=== PATIENT | male | born 1965 | race Caucasian/White ===

== ENCOUNTER 2023-07-07 17:04 | Inpatient (IN) | payer MEDICARE, MEDICAID, SELFPAY ==
--- NOTE | ~2023-07-07 | XR_ITS ---
EXAMINATION: XR CHEST 2 VIEW CLINICAL INFORMATION: Cough and shortness of breath COMPARISON: 04/12/2019 TECHNIQUE: PA and lateral views of the chest obtained. FINDINGS: Consolidation is evident in the left lower lobe. The right lung is clear. There are no pleural effusions. The cardiomediastinal silhouette is normal. XR/XR chest 2V IMPRESSION: Left lower lobe pneumonia. Follow-up is recommended to confirm clearing.
[2023-07-07 17:18] VITALS: BP 157/98; PULSE 70; O2SAT 90
[2023-07-07 17:28] VITALS: BP 135/69; PULSE 78; RESP 16; TEMP 37.2; O2SAT 95; BMI 27.4
--- NOTE | 2023-07-07 17:29 | ECG_ITS ---
Test Reason : sob Blood Pressure : / mmHG Vent. Rate : 071 BPM Atrial Rate : 071 BPM P-R Int : 166 ms QRS Dur : 084 ms QT Int : 434 ms P-R-T Axes : 043 057 060 degrees QTc Int : 471 ms Normal sinus rhythm Normal ECG When compared with ECG of 12-APR-2019 07:31, No significant change was found Referred By: Ana Martin Electronically Signed By:JATINDER LOPEZ MD
--- NOTE | 2023-07-07 17:29 | ED.SOB ---
HPI - SOB/Dyspnea General Chief Complaint: Upper Respiratory Symptoms Stated Complaint: cough and SOB x3 days, productive cough, 93% RA Time Seen by Provider: 07/07/23 17:17 Source: patient, EMS and other (prison records reviewed) Mode of arrival: EMS Limitations: no limitations History of Present Illness HPI Narrative: Patient is a 58-year-old male presents emergency department via EMS coming in from home. Patient has been experiencing productive cough with yellow phlegm, and shortness of breath over the past 3 days with progressive worsening. Per EMS report his room air O2 saturation to 90%, currently on 3 L via nasal cannula with O2 saturation 94-95%. He denies any known sick contacts. He denies fevers, chills, sore throat, difficulty swallowing, chest pain, nausea vomiting, abdominal pain, numbness or tingling of the extremities, swelling of the extremities. Related Data Allergies Allergy/AdvReac Type Severity Reaction Status Date / Time almond [ALMOND] Allergy Unknown UNK Verified 07/07/23 20:54 Seasonal Allergies Allergy Runny Nose Verified 07/07/23 20:55 Review of Systems Review of Systems: Yes all other systems are reviewed and are negative [facility] Past Medical History Attestation statement: The following information was validated with the patient. Source: other (halfway records reviewed) Medical History Gastroesophageal reflux disease Essential hypertension Social History Social History Smoked in Last 30 Days: No Use of substances other than those prescribed or required for medical reasons: No Advance Directives: No Advance Directives Information Provided: No Physical Exam Vital Signs: Vital Signs: Last Vital Signs Temp 99 F 07/07/23 17:28 Pulse 65 07/07/23 19:28 Resp 16 07/07/23 19:28 BP 135/69 07/07/23 17:28 Pulse Ox 95 07/07/23 17:28 O2 Del Method Nasal Cannula 07/07/23 17:28 Oxygen Flow Rate 3 07/07/23 17:28 BMI result Body Mass Index 27.4 Appearance: Alert.?Oriented to person, place and time. No acute distress.?Normal affect. Eyes: Pupils equal, round and reactive to light.? ENT: Pharynx normal.?? Neck: Normal inspection.? Neck supple.?? CVS: Heart sounds normal. Normal heart rate and rhythm.? Pulses normal.?? Respiratory: No respiratory distress.? Lung sounds with rhonchi bilaterally, mild inspiratory wheezing in expiratory wheezing in the bilateral lower lobe Abdomen: Soft and non-tender. Normoactive bowel sounds. ?? Skin: Skin warm and dry.? Normal skin color.? Extremities: No lower extremity edema.? No calf ttp? Neuro: Moves all extremities spontaneously. Sensation intact bilaterally. No focal neuro deficits. Ambulates with normal steady gait. Course Reevaluation(s) Reevaluation #1: CBC is without leukocytosis, left shift or anemia. CMP is overall unremarkable. Lipase within normal limits. High sensitive troponin below detectable limits, EKG revealing normal sinus rhythm with ventricular rate of 71, QTC 401, no ST elevation, no ST depression, not consistent with ACS.. BMP within normal range. COVID-19/influenza/RSV testing is negative. Chest x-ray consistent with left lower lobe pneumonia, ambulatory O2 trial Time: 19:44 Reevaluation #2: Room air O2 saturation while at rest to 88%, improves with supplemental O2 via NC to 94%. reviewed these findings with patient and his mother. Admission to medicine service, accepted by Dr. Souza Time: 20:26 Medications Administered Discontinued Medications Generic Name Dose Route Start Last Admin Trade Name Freq PRN Reason Stop Dose Admin Albuterol Sulfate 8 puff 07/07/23 19:17 07/07/23 19:21 Albuterol Sulfate 90 Mcg 8 Gm Inhaler INHALE 07/07/23 19:18 8 puff ONCE ONE Administration Ceftriaxone Sodium 1 gm/ 50 mls @ 100 mls/hr 07/07/23 20:29 07/07/23 20:56 Sodium Chloride IV 07/07/23 20:58 100 mls/hr ONCE ONE Administration Medical Decision Making Medical Decision Making [facility] Narrative: Patient is a 58-year-old male with past medical history of hypertension, hyperlipidemia, cardiomyopathy, prolonged QT, diverticulitis, Grey syndrome, thrombocytopenia who presents to the emergency department for evaluation of cough and shortness of breath. The time of my examination he is does not appear to be in any respiratory distress, he is speaking clear full sentences, no tachypnea. He is on 3 L via nasal cannula with O2 saturation at 95%. He is without tachycardia and is normotensive. He does have rhonchi bilaterally within strain extreme wheezing in the lower lobes, no known pulmonary history. Will obtain CBC to evaluate for leukocytosis/ anemia, CMP to evaluate for abnormal electrolytes /abnormal renal function/ abnormal hepatic function, EKG and troponin to evaluate for ischemia/ACS. Chest x-ray to evaluate for consolidation/ infiltrate/ mass/ pulmonary congestion and Urinalysis. Differential Diagnosis Differential Diagnoses: The differential diagnosis associated with the presentation includes (Viral upper respiratory infection, pneumonia, ACS, CHF) Admission/Observation Consideration of admission/observation: Escalation of care including admission/observation considered (See narrative above and course narrative for further details) Consult Healthcare Provider Management of the patient was discussed with: Hospitalist (As per course narrative) Lab Data MDM Lab Attestation statement: I reviewed the patient's lab results. (See course narrative) 07/07/23 18:03 07/07/23 18:03 Labs: Lab Results 07/07/23 Range/Units 18:03 WBC 6.0 (4.8-10.8) X10*3/uL RBC 4.76 (4.60-5.80) X10*6/uL Hgb 15.0 (14.0-18.0) g/dl Hct 45.5 (42.0-52.0) % MCV 95.6 (80.0-98.0) fL MCH 31.5 (27.0-33.0) pg MCHC 33.0 (31.0-36.0) g/dl RDW 13.4 (11.0-16.0) % Plt Count 316 (160-400) X10*3/uL MPV 10.1 (9.4-12.4) fL Immature Gran % (Auto) 0.5 H (0.0-0.4) % Neut % (Auto) 71.1 (45-73) % Lymph % (Auto) 18.8 L (20-40) % [place] % (Auto) 8.1 (2-11) % Eos % (Auto) 0.8 (0-4) % Baso % (Auto) 0.7 (0-2) % Lymph # (Auto) 1.1 L (1.2-4.9) X10*3/uL [place] # (Auto) 0.5 (0.1-1.2) X10*3/uL Eos # (Auto) 0.1 (0.0-0.4) X10*3/uL Baso # (Auto) 0.0 (0.0-0.2) X10*3/uL Abs Immat Gran (auto) 0.03 (0.00-0.03) X10*3/uL Absolute Neuts (auto) 4.2 (2.0-8.3) x10*3/uL Absolute Nucleated RBC 0.000 (0.0-0.012) X10*3/uL Nucleated RBC % (auto) 0.0 (0.0-0.2) /100WBC PT 13.9 H (11.1-13.3) SEC INR 1.1 (0.9-1.1) Sodium 142 (135-145) mmol/L Potassium 3.9 (3.3-5.1) mmol/L Chloride 106 (96-108) mmol/L Carbon Dioxide 30 H (22-29) mmol/L Anion Gap 10 L (12-20) BUN 14 (9-16) mg/dL Creatinine 0.94 (0.5-1.4) mg/dL Estim Creat Clear Calc 83.8 Estimated GFR > 60 Random Glucose 128 H (60-115) mg/dL Calcium 9.6 (8.4-10.2) mg/dL Magnesium 2.2 (1.6-2.6) mg/dL Total Bilirubin 0.5 (0.0-1.0) mg/dL AST 41 H (5-37) U/L ALT 37 (0-40) U/L Alkaline Phosphatase 69 (39-117) U/L Troponin I High Sens < 2.7 (<3.5-35.0) ng/L B-Natriuretic Peptide 62 (<100) pg/mL Total Protein 7.4 (6.5-8.0) g/dL Albumin 3.2 L (3.5-5.0) g/dL Lipase 41 (8-78) U/L Influenza Type A (PCR) NEGATIVE (Negative) Influenza Type B (PCR) NEGATIVE (Negative) RSV RNA Qual (PCR) NEGATIVE (Negative) SARS-CoV-2 RNA (RT-PCR) NEGATIVE (Negative) Independent Interpretation I performed an independent interpretation of an: EKG (See course narrative) and Plain X-Ray (I personally interpreted chest x-ray and agree with radiologist impression.) Radiology Impression Discussion of test interpretation with radiology: I have reviewed the radiologist's reading. Radiologist Impression: XR/XR chest 2V IMPRESSION: Left lower lobe pneumonia. Follow-up is recommended to confirm clearing. Independent Historian Clinical information obtained from an independent historian. History obtained from or confirmed by: EMS External Record Review External record reviewed: Other (prison records) Discharge Plan Discharge Clinical Impression: Pneumonia Qualifiers: Laterality: left Lung location: lower lobe of lung Patient Disposition: Admitted As Inpatient
[2023-07-07 18:09] LABS: MANUAL DIFF FLAG NO
[2023-07-07 18:14] LABS: Basophils Percent Auto 0.7 % (0-2); Eosinophils Absolute Auto 0.1 X10*3/uL (0.0-0.4); Eosinophils Percent Auto 0.8 % (0-4); Hematocrit 45.5 % (42.0-52.0); Imm Gran Abs Auto 0.03 X10*3/uL (0.00-0.03); Imm Gran Pct Auto 0.5 % (0.0-0.4); Lymphocytes Absolute Auto 1.1 X10*3/uL (1.2-4.9); Lymphocytes Percent Auto 18.8 % (20-40); Mean Corpuscular Hemoglobin 31.5 pg (27.0-33.0); Mean Corpuscular Volume 95.6 fL (80.0-98.0); Mean Platelet Volume 10.1 fL (9.4-12.4); Monocytes Absolute Auto 0.5 X10*3/uL (0.1-1.2); Monocytes Percent Auto 8.1 % (2-11); Neutrophils Absolute Auto 4.2 x10*3/uL (2.0-8.3); Neutrophils Percent Auto 71.1 % (45-73); Platelet Count 316 X10*3/uL (160-400); Red Blood Count 4.76 X10*6/uL (4.60-5.80); Red Cell Distribution Width 13.4 % (11.0-16.0)
--- OUTSIDE RECORDS SUMMARY | 2023-07-07 18:14 | XMS_ITS | Continuity of Care Document ---
Author Name Unknown Organization [facility] ter Address [address] [place] [id number]- Care Team Providers Care Jewelry Sales Representative Name Role Phone Daksha Ramirez MD Primary Care Physician Encounter [facility] Date(s): 07/08/19 - 07/08/[address] [address]- [facility] Attending Physician: Daksha Ramirez MD Allergies, Adverse Reactions, Alerts Substance Reaction Severity Status lisinopril 1 Active 1Side effect is cough Immunizations Given and Recorded Vaccine Date Status Refusal Reason influenza virus vaccine, inactivated 07/08/19 Give n influenza virus vaccine, inactivated 05/06/18 Give n influenza virus vaccine, inactivated 06/22/17 Give n influenza virus vaccine, inactivated 06/12/15 Give n influenza virus vaccine, inactivated 1 04/26/13 Gi lizz influenza virus vaccine, inactivated 04/15/11 Give n influenza virus vaccine, inactivated 05/30/10 Give n Fluzone (oldterm) 05/19/14 Given FluLaval (oldterm) 2 05/04/12 Given tetanus/diphtheria/pertussis, acel(Tdap) 05/30/10 Given Tetanus Toxoid Vaccine (oldterm) 10/18/96 Given 1Result Comment: [04/26/2013] Ordered by Dr. Daksha Ramirez 2Admin Note: Gave the VIS 01-19-2012 Medications Claritin 10 mg oral tablet 10 mg, 1, tablet, By Mouth, Daily, PRN, # 30 tablet, Refills 0, Tot. Refills 0, Maintenance, allergy symptoms, 10/27/18 15:42:52 EDT, Route to Pharmacy Electronically, [id number], [facility] Start Date: 10/27/18 Stop Date: 11/26/18 Status: Ordered Denta 5000 Plus topical cream 1 applicator, Topically, 2 times a day, 0 Refills, Maintenance, 04/14/17 14:17:10 Start Date: 04/14/17 Status: Ordered hydrochlorothiazide-valsartan 12.5 mg-160 mg oral tablet 1 tablet, By Mouth, Daily, # 90 tablet, 1 Refills, Maintenance, 01/19/18 16:42:05 EDT, Tablet, Replaces hydrochlorothiazide-valsartan 25 mg-320 mg daily., 1 tablet By Mouth Daily Start Date: 01/19/18 Stop Date: 04/19/18 Status: Ordered simvastatin 40 mg oral tablet 40 mg, 1, tablet, By Mouth, Daily at bedtime, for hypercholesterolemia, # 30 tablet, Refills 6, Tot. Refills 6, Maintenance, 09/18/16 15:38:49, Route to Pharmacy Electronically, [id number], [facility] Start Date: 09/18/16 Stop Date: 09/13/17 Status: Ordered Problem List Condition Effective Dates Status Health Status Inform ant Anxiety(Confirmed) Active Nonischemic cardiomyopathy(Confirmed) 06/22/17 Active Diverticulitis(Confirmed) 03/08/10 Active Heartburn(Confirmed) Active Hypercholesterolemia(Confirmed) Active Hypertension(Confirmed) 05/30/10 Active Perennial allergic rhinitis(Confirmed) Active Prolonged QT interval(Confirmed) Active Systolic dysfunction(Confirmed) 02/05/17 Active Thrombocytopenia(Confirmed) 10/12/12 Active Madan syndrome(Confirmed) Active Social History Social History Type Response Smoking Status Never smoker entered on: 10/31/14 Sex
--- OUTSIDE RECORDS SUMMARY | 2023-07-07 18:14 | XMS_ITS | Continuity of Care Document ---
Author Name Unknown Organization [facility] Address [address] [place] [id number]- Care Team Providers Care Rubber Mill Tender Name Role Phone Daksha Ramirez MD Primary Care Physician Encounter [facility] [place] [place] Date(s): 07/30/20 - 08/29/20 [facility] [address] [place] [id number] Attending Physician: Admtr, [id number] Admitting Physician: Admtr, Ar8 Referring Physician: Admtr, Ar8 Allergies, Adverse Reactions, Alerts Substance Reaction Severity Status lisinopril 1 Active 1Side effect is cough Immunizations Given and Recorded Vaccine Date Status Refusal Reason tetanus/diphtheria/pertussis, acel(Tdap) 05/25/20 Given tetanus/diphtheria/pertussis, acel(Tdap) 05/30/10 Given influenza virus vaccine, inactivated 1 04/23/20 Re corded influenza virus vaccine, inactivated 07/08/19 Give n influenza virus vaccine, inactivated 05/06/18 Give n influenza virus vaccine, inactivated 06/22/17 Give n influenza virus vaccine, inactivated 06/12/15 Give n influenza virus vaccine, inactivated 2 04/26/13 Gi lizz influenza virus vaccine, inactivated 04/15/11 Give n influenza virus vaccine, inactivated 05/30/10 Give n Fluzone (oldterm) 05/19/14 Given FluLaval (oldterm) 3 05/04/12 Given Tetanus Toxoid Vaccine (oldterm) 10/18/96 Given 1Result Comment: PHARMACY 2Result Comment: [04/26/2013] Ordered by Dr. Daksha Ramirez 3Admin Note: Gave the VIS 01-19-2012 Medications 2x2 nonwoven gauze 2x2 nonwoven gauze, See Instructions, # 100 each, Refills 0, Tot. Refills 0, Maintenance, dressing change twice daily for arm wound, 06/18/20 10:25:00 EST, Supply Start Date: 06/18/20 Status: Ordered Denta 5000 Plus topical cream [...] Date: 01/19/18 Stop Date: 04/19/18 Status: Ordered Medipore cloth tape Medipore cloth tape, See Instructions, # 1 each, Refills 2, Tot. Refills 2, Maintenance, use as directed twice per day, 06/18/20 10:26:00 EST, Supply Start Date: 06/18/20 Status: Ordered simvastatin 40 mg oral tablet 40 mg, 1, tablet, By Mouth, Daily at bedtime, for hypercholesterolemia, # 30 tablet, Refills 6, Tot. Refills 6, Maintenance, 09/18/16 15:38:49, Route to Pharmacy Electronically, [id number], [facility] Start Date: 09/18/16 Stop Date: 09/13/17 [...]
--- OUTSIDE RECORDS SUMMARY | 2023-07-07 18:15 | XMS_ITS | Continuity of Care Document ---
Author Name Unknown Organization [facility] Address [address] [place] [id number]- Care Team Providers Care Gas Turbine Powerplant Mechanic Helper Name Role Phone Daksha Ramirez MD Primary Care Physician [phone] Encounter [facility] R [id number] Date(s): 05/29/20 - 06/29/20 [facility] [address] [place] [id number] Attending Physician: Wil Poole MD Admitting Physician: Wil Poole MD Referring Physician: Daksha Ramirez MD Allergies, Adverse Reactions, Alerts Substance Reaction Severity Status lisinopril 1 Active 1Side effect is cough Immunizations Given and Recorded Vaccine Date Status Refusal Reason tetanus/diphtheria/pertussis, acel(Tdap) 05/25/20 Given tetanus/diphtheria/pertussis, acel(Tdap) 05/30/10 Given influenza virus vaccine, inactivated 07/08/19 Give n influenza virus vaccine, inactivated 05/06/18 Give n influenza virus vaccine, inactivated 06/22/17 Give n influenza virus vaccine, inactivated 06/12/15 Give n influenza virus vaccine, inactivated 1 04/26/13 Gi lizz influenza virus vaccine, inactivated 04/15/11 Give n influenza virus vaccine, inactivated 05/30/10 Give n Fluzone (oldterm) 05/19/14 Given FluLaval (oldterm) 2 05/04/12 Given Tetanus Toxoid Vaccine (oldterm) 10/18/96 Given 1Result Comment: [04/26/2013] Ordered by Dr. Daksha Ramirez 2Admin Note: Gave the VIS 01-19-2012 Medications 2x2 nonwoven gauze 2x2 nonwoven gauze, See Instructions, # 100 each, Refills 0, Tot. Refills 0, Maintenance, dressing change twice daily for arm wound, 06/18/20 10:25:00 EST, Supply Start Date: 06/18/20 Status: Ordered bacitracin topical 500 u/gm ointment 1 application, Topically, 2 times a day, for 30 days, apply to right arm wound, # 30 Gm, 1 Refills,Acute 08/17/20 13:40:00 EST, 06/18/20 13:40:00 EST, Ointment, [id number], Partial fill upon patient request, 1 application Topically 2... Start Date: 06/18/20 Stop Date: 08/17/20 Status: Ordered Denta 5000 Plus topical cream [...] Maintenance, 09/18/16 15:38:49, Route to Pharmacy Electronically, [id number], [facility] Start Date: 09/18/16 Stop Date: 09/13/17 [...]
[2023-07-07 18:19] LABS: INTERNATIONAL NORM RATIO 1.1 (0.9-1.1); Prothrombin Time 13.9 SEC (11.1-13.3)
[2023-07-07 18:29] LABS: Alanine Aminotransferase 37 U/L (0-40); Albumin Level 3.2 g/dL (3.5-5.0); Alkaline Phosphatase 69 U/L (39-117); Anion Gap 10 (12-20); Aspartate Amino Transferase 41 U/L (5-37); Bilirubin Total 0.5 mg/dL (0.0-1.0); Blood Urea Nitrogen 14 mg/dL (9-16); Calcium 9.6 mg/dL (8.4-10.2); Carbon Dioxide 30 mmol/L (22-29); Chloride 106 mmol/L (96-108); Creatinine Clr Calc Pharmacy 83.8; Estimated Glomerular Filt Rate > 60; Glucose Random 128 mg/dL (60-115); Lipase 41 U/L (8-78); Magnesium 2.2 mg/dL (1.6-2.6); Potassium 3.9 mmol/L (3.3-5.1); Sodium 142 mmol/L (135-145); Total Protein 7.4 g/dL (6.5-8.0)
[2023-07-07 18:33] LABS: B Type Natriuretic Peptide 62 pg/mL (<100)
[2023-07-07 18:41] LABS: Troponin-I High Sensitivity < 2.7 ng/L (<3.5-35.0)
[2023-07-07 18:49] LABS: Influenza A PCR NEGATIVE (Negative); Influenza B PCR NEGATIVE (Negative); Resp Syncy Virus RNA Qual PCR NEGATIVE (Negative); SARS COV2 PCR INHOUSE NEGATIVE (Negative)
[2023-07-07] MEDS: Albuterol Sulfate 90 MCG 8 GM INHALER 8 PUFF INHALE (19:21)
[2023-07-07 19:28] VITALS: PULSE 65; RESP 16; O2SAT 95
[2023-07-07 19:45] VITALS: O2SAT 95
--- NOTE | 2023-07-07 20:27 | P.HPHOSP_ITS ---
History of Present Illness Date of Service: 07/07/23 Chief Complaint: Dyspnea This is a 58-year-old male with pertinent history of essential hypertension, gastroesophageal reflux disease who presents to the emergency department for evaluation of cough and dyspnea. Patient states the symptoms started 1 week prior to presentation. Patient developed productive cough with yellowish sputum production that has been ongoing and progressive. Also has been having dyspnea which is worse with ambulation. No sick contacts. No associated chest pain, wheezing or palpitations. No similar symptoms in the past. No orthopnea or PND. Patient denies fever, chills, abdominal pain, changes in urinary or bowel habits. In the emergency department, patient requiring 2 L supplemental oxygen and found to have left-sided pneumonia. Review of Systems 2 Constitutional: Constitutional: Reports fatigue, Reports lethargy and Reports weakness Cardiovascular: Cardiovascular: Reports dyspnea on exertion Respiratory: Respiratory: Reports cough and Reports dyspnea on exertion Gastrointestinal: Gastrointestinal: Reports no additional gastrointestinal complaints Genitourinary: Genitourinary: Reports no additional male genitourinary complaints Neurologic: Reports weakness Endocrine: Endocrine: Reports fatigue [facility] Medical History Gastroesophageal reflux disease Essential hypertension Pertinent family history: No family hisotry of early CAD Social History Smoked in Last 30 Days: No Use of substances other than those prescribed or required for medical reasons: No Advance Directives: No Advance Directives Information Provided: No Meds Allergies Allergy/AdvReac Type Severity Reaction Status Date / Time almond [ALMOND] Allergy Unknown UNK Verified 07/07/23 20:54 Seasonal Allergies Allergy Runny Nose Verified 07/07/23 20:55 Home Medications Medication Instructions Recorded Confirmed Last Taken Type acetaminophen 500 mg tablet 1,000 mg PO Q8H PRN Pain 07/07/23 07/07/23 Unknown History aspirin 81 mg tablet,delayed 81 mg PO QAM 07/07/23 07/07/23 07/07/23 History release carvedilol 6.25 mg tablet 6.25 mg PO BID 07/07/23 07/07/23 07/07/23 History loratadine 10 mg tablet 10 mg PO DAILY PRN Allergy Symptoms 07/07/23 07/07/23 Unknown History omeprazole 20 mg capsule,delayed 20 mg PO QAM 07/07/23 07/07/23 07/07/23 History release simvastatin 40 mg tablet 40 mg PO BEDTIME 07/07/23 07/07/23 07/06/23 History valsartan 160 1 tab PO QAM 07/07/23 07/07/23 07/07/23 History mg-hydrochlorothiazide 12.5 mg tablet Physical Exam 2 Vital Signs and Narrative: Vital Signs: Last Vital Signs Temp 99 F 07/07/23 17:28 Pulse 65 07/07/23 19:28 Resp 16 07/07/23 19:28 BP 135/69 07/07/23 17:28 Pulse Ox 95 07/07/23 17:28 O2 Del Method Nasal Cannula 07/07/23 17:28 Oxygen Flow Rate 3 07/07/23 17:28 BMI result Body Mass Index 27.4 Middle-aged male lying in bed in mild distress on supplemental oxygen Neck supple, no JVD Regular rate and rhythm, S1-S2 heard Left-sided crackles without wheezing Abdomen soft nontender, no guarding, no rigidity Patient is awake, alert and oriented to self, place, time and person ; no focal motor deficit Psych: Normal mood No pedal edema Results Labs 07/07/23 18:03 07/07/23 18:03 Labs: Laboratory Results - last 24 hr 07/07/23 18:03 MCV 95.6 MCH 31.5 MCHC 33.0 RDW 13.4 Plt Count 316 MPV 10.1 Immature Gran % (Auto) 0.5 H Neut % (Auto) 71.1 Lymph % (Auto) 18.8 L [place] % (Auto) 8.1 Eos % (Auto) 0.8 Baso % (Auto) 0.7 Lymph # (Auto) 1.1 L [place] # (Auto) 0.5 Eos # (Auto) 0.1 Baso # (Auto) 0.0 Abs Immat Gran (auto) 0.03 Absolute Neuts (auto) 4.2 Absolute Nucleated RBC 0.000 Nucleated RBC % (auto) 0.0 PT 13.9 H INR 1.1 Anion Gap 10 L Estim Creat Clear Calc 83.8 Estimated GFR > 60 Random Glucose 128 H Calcium 9.6 Magnesium 2.2 Total Bilirubin 0.5 AST 41 H ALT 37 Alkaline Phosphatase 69 B-Natriuretic Peptide 62 Total Protein 7.4 Albumin 3.2 L Lipase 41 Influenza Type A (PCR) NEGATIVE Influenza Type B (PCR) NEGATIVE RSV RNA Qual (PCR) NEGATIVE SARS-CoV-2 RNA (RT-PCR) NEGATIVE Imaging Radiologist's Impressions: Impressions Chest X-Ray 07/07/23 18:42 IMPRESSION: Left lower lobe pneumonia. Follow-up is recommended to confirm clearing. Assessment and Plan (1) Pneumonia: Qualifiers: Laterality: left Lung location: lower lobe of lung Status: Acute Plan This is a 58-year-old male with pertinent history of essential hypertension, gastroesophageal reflux disease who presents to the emergency department for evaluation of cough and dyspnea. #. Acute hypoxemic respiratory failure secondary to left-sided pneumonia: Will admit patient with supplemental oxygen. Initiating empiric antibiotics for community-acquired pneumonia. Sputum culture pending. No sepsis. Monitor supplemental oxygen and wean as tolerated. #. Essential hypertension: Continue home antihypertensives #. Gastroesophageal reflux disease: On PPI Med rec pending DVT prophylaxis: Lovenox Full code Admit as inpatient and will require two night minimum hospital stay for supplemental oxygen and IV antibiotics (as above), which is not possible in a lesser acute setting. Quality Stroke Does the patient have a stroke diagnosis?: No VTE Prior VTE?: No VTE Risk Level:: Medical - moderate - high VTE Device Contraindication: Treatment Not Indicated VTE Drug Contraindication: N/A - Med Ordered
[2023-07-07 20:30] VITALS: O2SAT 89
--- NOTE | 2023-07-07 20:30 | PC.NURSE ---
Pt maintained at 95% on RA for o2 ambulation trial. Pt dropped down to 89% on RA while lying on stretcher. Pt placed back on 2L via NC with improvement to 95%. Provider Keith made aware.
[2023-07-07 20:45] VITALS: O2SAT 95
[2023-07-07] MEDS: cefTRIAXone sodium 1 GM in 0.9 % Sodium Chloride 50 ML IV (20:56)
[2023-07-07] MEDS: Azithromycin 500 MG in 0.9 % Sodium Chloride 250 ML 125 MG IV (21:44)
[2023-07-07] MEDS: Enoxaparin Sodium 40 MG/0.4 ML SYRINGE SUBCUT (21:54)
--- NOTE | 2023-07-07 22:07 | PHA.MEDREC ---
Pharmacy Consult ? Medication Reconciliation Pharmacy has completed the medication reconciliation. Spoke to mother at bedside and confirmed medication list.
--- NOTE | 2023-07-07 22:11 | MHC.EDTECH ---
This tech took the patient for a walking o2 check. On RM air patient was stating at 96%, when I got him up we walked down the [place] W/O any complaints. We turned around and O2 was stable at 95%, when heading back to the patient bed he did hand picker his pace a little bit and his O2 went down to the lowest of 93% on RM air while walking. At that time no complaints, no difficulties. RN was notified.
[2023-07-08 00:03] VITALS: BP 135/78; PULSE 74; RESP 18; TEMP 36.7; O2SAT 95
--- NOTE | 2023-07-08 00:10 | PC.NURSE ---
Pt sitting at edge of stretcher with director of group counseling program, Pt given water and crackers per request. No apparent distress, updated on plan of care.
[2023-07-08 05:53] LABS: Appearance Urine Clear; Color Urine Yellow; Glucose Urine UA Negative (Negative); Leukocyte Esterase Urine Negative (Negative); Nitrite Urine Negative (Negative); PH 6.5 (5.0-9.0); Specific Gravity - Urine 1.015 (1.005-1.025); Urine Blood Negative (Negative); Urine Ketones Negative (Negative); Urine Protein Negative (Neg-Trace)
[2023-07-08 06:00] VITALS: BP 141/81; PULSE 60; RESP 16; TEMP 36.7; O2SAT 94
[2023-07-08] MEDS: Omeprazole 20 MG CAPSULE.DR PO (06:01)
[2023-07-08 06:46] LABS: MANUAL DIFF FLAG NO
[2023-07-08 07:03] LABS: Anion Gap 11 (12-20); Blood Urea Nitrogen 13 mg/dL (9-16); Carbon Dioxide 30 mmol/L (22-29); Chloride 105 mmol/L (96-108); Creatinine Clr Calc Pharmacy 98.5; Estimated Glomerular Filt Rate > 60; Glucose Random 84 mg/dL (60-115); Potassium 4.4 mmol/L (3.3-5.1); Sodium 142 mmol/L (135-145)
[2023-07-08 07:29] LABS: Basophils Percent Auto 0.7 % (0-2); Eosinophils Absolute Auto 0.1 X10*3/uL (0.0-0.4); Hematocrit 43.9 % (42.0-52.0); Hemoglobin 14.4 g/dl (14.0-18.0); Imm Gran Abs Auto 0.03 X10*3/uL (0.00-0.03); Imm Gran Pct Auto 0.5 % (0.0-0.4); Lymphocytes Absolute Auto 1.2 X10*3/uL (1.2-4.9); Lymphocytes Percent Auto 20.4 % (20-40); Mean Corpuscular HGB Conc 32.8 g/dl (31.0-36.0); Mean Corpuscular Hemoglobin 31.5 pg (27.0-33.0); Mean Corpuscular Volume 96.1 fL (80.0-98.0); Mean Platelet Volume 11.4 fL (9.4-12.4); Monocytes Absolute Auto 0.5 X10*3/uL (0.1-1.2); Monocytes Percent Auto 8.5 % (2-11); Neutrophils Percent Auto 68.9 % (45-73); Platelet Count 259 X10*3/uL (160-400); Red Blood Count 4.57 X10*6/uL (4.60-5.80); Red Cell Distribution Width 13.7 % (11.0-16.0); White Blood Count 5.8 X10*3/uL (4.8-10.8)
[2023-07-08 08:00] VITALS: BP 150/71; PULSE 68; RESP 16; TEMP 36.6; O2SAT 95
--- NOTE | 2023-07-08 09:34 | MHC.CM.PN ---
Addendum entered by Ann-Marie Pineda RN 07/08/23 10:13: PER MD ROUNDS PATIENT MAY DC LATER TODAY IF O2 IMPROVING. SPOKE WITH [employer] BUSTER AND INFORMED OF ABOVE. PER BUSTER, NO SPECIFIC PAPERWORK/DOCUMENTATION NEEDED OTHER THAN D/C SUMMARY AND STAFF CAN TRANSPORT HOME. BUSTER WILL FAX COPY OF HCP. CM WILL CONTINUE TO FOLLOW. Original Note: IMM VERBALLY DELIVERED TO BOTH PATIENT AND HCP. PATIENT W/ VALENCIA SYNDROME AND IS FROM [facility] (HOME # [phone]). LM FOR MEDICAL STAFF DIRECTOR BUSTER ([phone]). AWAITING CALL BACK. PER FACE SHEET MOTHER ARISTEO VAZQUEZ IS HCP, NOT INVOKED. HOME: [phone], CELL: [phone]. COPY OF HCP REQUESTED. PCP: FELIPE OWENS MD DP: RETURN TO HALFWAY VIA BLS. CM WILL CONTINUE TO FOLLOW.
[2023-07-08] MEDS: hydroCHLOROthiazide 12.5 MG TABLET PO (09:46)
[2023-07-08] MEDS: carvediloL 6.25 MG TABLET PO (09:46)
[2023-07-08] MEDS: Aspirin Enteric Coated 81 MG TABLET.DR PO (09:46)
[2023-07-08] MEDS: 0.9 % Sodium Chloride Flush 3 ML SYRINGE IVFLUSH (09:47)
[2023-07-08] MEDS: Valsartan 160 MG TABLET PO (09:47)
[2023-07-08 10:32] VITALS: O2SAT 92
[2023-07-08 10:52] VITALS: O2SAT 93
--- NOTE | 2023-07-08 13:57 | PM.DS ---
DS: Providers Provider Date of Service: 07/08/23 Date of admission: 07/07/23 20:25 Primary care physician: Daksha Ramirez MD DS: Diagnosis Discharge Diagnosis (1) Pneumonia: Status: Acute DS: Summary Hospital Course Hospital Course: admission HPI Chief Complaint: Dyspnea This is a 58-year-old male with pertinent history of essential hypertension, gastroesophageal reflux disease who presents to the emergency department for evaluation of cough and dyspnea. Patient states the symptoms started 1 week prior to presentation. Patient developed productive cough with yellowish sputum production that has been ongoing and progressive. Also has been having dyspnea which is worse with ambulation. No sick contacts. No associated chest pain, wheezing or palpitations. No similar symptoms in the past. No orthopnea or PND. Patient denies fever, chills, abdominal pain, changes in urinary or bowel habits. In the emergency department, patient requiring 2 L supplemental oxygen and found to have left-sided pneumonia. Hospital course: patient presented with shortness of breath. His workup was negative for influenza, RSV and COVID. He has no fever, WBC were normal. CXR showed a left lower lobe pneumonia. He had one episode of low Oxygen of 89%. Patient was admitted and treated with IV antibiotics and has made rapid recovery. Presently, he is breathing comfortably, oxygen saturation is 93% on room air. He will be discharged with oral Ceftin 500 mg twice daily for 7 more days. CXR will be repeated in 2 weeks to ensure complete clearance Time Attestation Discharge coordination time: Greater than 30 minutes Quality: Safe Use of Opioids Does Pt have an Active Cancer Diagnosis on the Problem List?: No Quality: Stroke Does the patient have a stroke diagnosis?: No Physical Exam Vital Signs: Vital Signs: Last Vital Signs Temp 98 F 07/08/23 08:00 Pulse 68 07/08/23 08:00 Resp 16 07/08/23 08:00 BP 150/71 H 07/08/23 08:00 Pulse Ox 93 07/08/23 10:52 O2 Del Method Room Air 07/08/23 10:52 O2 Flow Rate 1 07/08/23 08:00 Oxygen Flow Rate 3 07/07/23 17:28 BMI result Body Mass Index 27.4 DS: Data Data Completed and Pending Labs on day of discharge: Laboratory Results - last 24 hr 12/19/23 12/20/23 12/20/23 18:03 05:29 05:48 WBC 6.0 5.8 RBC 4.76 4.57 L Hgb 15.0 14.4 Hct 45.5 43.9 MCV 95.6 96.1 MCH 31.5 31.5 MCHC 33.0 32.8 RDW 13.4 13.7 Plt Count 316 259 MPV 10.1 11.4 Immature Gran % (Auto) 0.5 H 0.5 H Neut % (Auto) 71.1 68.9 Lymph % (Auto) 18.8 L 20.4 Edwards % (Auto) 8.1 8.5 Eos % (Auto) 0.8 1.0 Baso % (Auto) 0.7 0.7 Lymph # (Auto) 1.1 L 1.2 Edwards # (Auto) 0.5 0.5 Eos # (Auto) 0.1 0.1 Baso # (Auto) 0.0 0.0 Abs Immat Gran (auto) 0.03 0.03 Absolute Neuts (auto) 4.2 4.0 Absolute Nucleated RBC 0.000 0.000 Nucleated RBC % (auto) 0.0 0.0 PT 13.9 H INR 1.1 Sodium 142 142 Potassium 3.9 4.4 Chloride 106 105 Carbon Dioxide 30 H 30 H Anion Gap 10 L 11 L BUN 14 13 Creatinine 0.94 0.80 Estim Creat Clear Calc 83.8 98.5 Estimated GFR > 60 > 60 Random Glucose 128 H 84 Calcium 9.6 9.0 D Magnesium 2.2 Total Bilirubin 0.5 AST 41 H ALT 37 Alkaline Phosphatase 69 Troponin I High Sens < 2.7 B-Natriuretic Peptide 62 Total Protein 7.4 Albumin 3.2 L Lipase 41 Urine Color Yellow Urine Appearance Clear Urine pH 6.5 Ur Specific [place] 1.015 Urine Protein Negative Urine Glucose (UA) Negative Urine Ketones Negative Urine Blood Negative Urine Nitrite Negative Ur Leukocyte Esterase Negative Influenza Type A (PCR) NEGATIVE Influenza Type B (PCR) NEGATIVE RSV RNA Qual (PCR) NEGATIVE SARS-CoV-2 RNA (RT-PCR) NEGATIVE Discharge Plan Discharge Anticipated Discharge Date/Time: 07/08/23 13:51 Patient Disposition: Home, Self-Care Discharge Diagnosis: Pneumonia Referrals: Daksha Ramirez MD [Primary Care Provider] - 1 Week Discharge Medications: New cefuroxime axetil 500 mg tablet 500 mg PO BID 7 Days Qty: 14 0RF Continued carvedilol 6.25 mg tablet 6.25 mg PO BID valsartan-hydrochlorothiazide 160-12.5 mg tablet 1 tab PO QAM aspirin 81 mg tablet,delayed release (DR/EC) 81 mg PO QAM acetaminophen 500 mg tablet 1,000 mg PO Q8H PRN (Reason: Pain) simvastatin 40 mg tablet 40 mg PO BEDTIME omeprazole 20 mg capsule,delayed release(DR/EC) 20 mg PO QAM loratadine 10 mg tablet 10 mg PO DAILY PRN (Reason: Allergy Symptoms) Discharge Orders: Discharge Order (Routine); Ordered 07/08/23 Ordered By: Mat Van Diet: Advance to usual diet Activity on Discharge: As tolerated Stand Alone Forms: Patient Portal Discharge page Other Ambulatory Orders: XR chest 2V (Routine) Timeframe: 2 Weeks Facility: [facility] [place] - Location: Radiology Ordered By: Mat Van Care Plan Goals: recovery from the Health Concerns: pneumonia Plan of Treatment: take antibiotics as recommended follow-up with your doctor within a week, call for appointment You are to have an x-ray repeated in about 2 weeks Assessment: See above
--- NOTE | 2023-07-08 14:17 | MHC.CM.PN ---
PER MD PATIENT MEDICALLY CLEARED FOR DC. REVIEWED W/ LIVESTOCK BUYER DINAH. STAFF AND MOTHER/HCP AT BEDSIDE AND WILL TRANSPORT HOME.
== END 2023-07-08 15:38 | disposition home or self-care (01) | DRG 193 ==
LOC: HO.ED 18:13 → HO.EDOVER 21:18 → HO.S3 07-08 07:36
PROVIDERS: Nurse Practitioner Family; Admitting Provider Student in an Organized Health Care Education/Training Program; Emergency Provider Internal Medicine; PCP Internal Medicine; Visit Provider Internal Medicine
DX: J18.9 Pneumonia, unspecified organism (principal); J96.01 Acute respiratory failure with hypoxia; I10 Essential (primary) hypertension; K21.9 Gastro-esophageal reflux disease without esophagitis; Z20.822 Contact with and (suspected) exposure to COVID-19; Z79.82 Long term (current) use of aspirin; Z79.899 Other long term (current) drug therapy
CPT/HCPCS: 0241U; 36415; 71046; 80048; 80053; 81003; 83690; 83735; 83880; 84484; 85025; 85610; 93005; 94640; 99285; J0456; J0696; J1650

== ENCOUNTER → 2023-07-07 17:29 | Outpatient (BNV) | payer MEDICARE, MEDICAID, SELFPAY | PROVIDERS: Admitting Provider Student in an Organized Health Care Education/Training Program; Emergency Provider Internal Medicine; PCP Internal Medicine; Visit Provider Internal Medicine Cardiovascular Disease | DX: R06.02 Shortness of breath (principal) | CPT/HCPCS: 93010 ==

== ENCOUNTER → 2023-07-07 20:25 | Outpatient (BNV) | payer MEDICARE, MEDICAID, SELFPAY | PROVIDERS: Admitting Provider Student in an Organized Health Care Education/Training Program; Emergency Provider Internal Medicine; PCP Internal Medicine; Visit Provider Student in an Organized Health Care Education/Training Program | DX: J18.9 Pneumonia, unspecified organism (principal) | CPT/HCPCS: 99222; 99239 ==

== ENCOUNTER 2024-02-08 12:58 | Inpatient (IN) | payer MEDICARE, MEDICAID, SELFPAY ==
[2024-02-08 13:02] VITALS: BP 108/58; BP 138/84; PULSE 30; PULSE 79; RESP 14; TEMP 36.7; O2SAT 95; BMI 31.9
--- NOTE | 2024-02-08 13:07 | ECG_ITS ---
Test Reason : BRADYCARDIA Blood Pressure : / mmHG Vent. Rate : 048 BPM Atrial Rate : 048 BPM P-R Int : 170 ms QRS Dur : 092 ms QT Int : 558 ms P-R-T Axes : -05 067 079 degrees QTc Int : 498 ms Sinus bradycardia with occasional Premature ventricular complexes Prolonged QT Abnormal ECG When compared with ECG of 07-JUL-2023 17:44, Premature ventricular complexes are now Present Vent. rate has decreased BY 23 BPM Referred By: Ann-Marie Springer Electronically Signed By:JOSE JUAN PENA
--- NOTE | 2024-02-08 13:15 | PC.NURSE ---
Upon initial assessment after receiving EMS report, pt.'s HR by this RN was noted to be between 30-40. DATA MANAGER notified and to bedside, this RN and DATA MANAGER checked a radial pulse to confirm HR in 30s. sugar refiner notified and moved from [facility] to main ED.
--- NOTE | 2024-02-08 13:18 | PC.NURSE ---
Pt. moved to ED bed 4. On parking supervisor at this time. EKG done per LEEANN Lees verbal order.
--- NOTE | 2024-02-08 13:27 | PC.NURSE ---
Pt. with 20G in LAC and 20G in RAC. HR fluctuating in 40s at this time. Labs drawn, awaiting lab orders.
[2024-02-08 13:28] VITALS: BP 124/61; PULSE 45; RESP 18; O2SAT 95
--- NOTE | 2024-02-08 13:34 | ECG_ITS ---
Test Reason : BRADYCARDIA Blood Pressure : / mmHG Vent. Rate : 060 BPM Atrial Rate : 060 BPM P-R Int : 160 ms QRS Dur : 090 ms QT Int : 000 ms P-R-T Axes : 036 067 084 degrees QTc Int : 000 ms Sinus rhythm with frequent Premature ventricular complexes in a pattern of bigeminy Abnormal ECG When compared with ECG of 08-FEB-2024 13:10, No significant change was found Referred By: Mat Van Electronically Signed By:JOSE JUAN PENA
[2024-02-08 13:40] LABS: MANUAL DIFF FLAG NO
--- NOTE | 2024-02-08 13:43 | ED.GENADULT ---
HPI - General Adult General Chief complaint: Dyspnea Stated complaint: asthma attack Time Seen by Provider: 02/08/24 13:05 Source: patient and EMS Mode of arrival: EMS History of Present Illness HPI narrative: This is a 58 years old the patient resident of half[place]way presented to the emergency department with a chief complaint of nausea vomiting. He states that he was a big Y shopping went to the bathroom and vomited. Denies any chest pain any fever any diarrhea. Onset (ago): hour(s) (2) Radiation: non-radiation Severity: moderate Pain Consistency: constant Relieving factors: none Exacerbating factors: none Related Data Home Medications ?Medication ?Instructions ?Recorded ?Confirmed acetaminophen 500 mg tablet 1,000 mg PO Q8H PRN Pain 07/07/23 07/07/23 aspirin 81 mg tablet,delayed 81 mg PO QAM 07/07/23 07/07/23 release carvedilol 6.25 mg tablet 6.25 mg PO BID 07/07/23 07/07/23 loratadine 10 mg tablet 10 mg PO DAILY PRN Allergy Symptoms 07/07/23 07/07/23 omeprazole 20 mg capsule,delayed 20 mg PO QAM 07/07/23 07/07/23 release simvastatin 40 mg tablet 40 mg PO BEDTIME 07/07/23 07/07/23 valsartan 160 1 tab PO QAM 07/07/23 07/07/23 mg-hydrochlorothiazide 12.5 mg tablet Previous Rx's ?Medication ?Instructions ?Recorded cefuroxime axetil 500 mg tablet 500 mg PO BID 7 days #14 tabs 07/08/23 Allergies Allergy/AdvReac Type Severity Reaction Status Date / Time almond [ALMOND] Allergy Unknown UNK Verified 02/08/24 13:23 Seasonal Allergies Allergy Runny Nose Verified 02/08/24 13:23 Review of Systems Constitutional: Constitutional: Reports no additional constitutional complaints Cardiovascular: Cardiovascular: Reports no additional cardiovascular complaints Musculoskeletal: Musculoskeletal: Reports no additional musculoskeletal complaints [facility] Past Medical History [facility] Narrative: History of hypertension he is on beta hua metoprolol 50 mg daily and valsartan, history of Madan syndrome, thrombocytopenia prolonged QT Medical History Gastroesophageal reflux disease Essential hypertension Social History Social History Household Members: Other Household Members Other:: half-way Housing: House Do you presently have visiting nurse or other home services: No Patient Tobacco Use Status: Never used Tobacco Advance Directives: No Advance Directives Information Provided: Yes Do you have a plan to hurt others: No Plan service: No Physical Exam ED Vital Signs: Vital Signs - 24 hr 02/08/24 13:02 02/08/24 13:28 02/08/24 15:19 Temperature 98.1 F 98.2 F Pulse Rate 30 L 45 L 41 L Respiratory Rate 14 18 14 Blood Pressure 108/58 L 124/61 125/67 Pulse Oximetry 95 95 96 Oxygen Delivery Method Room Air Room Air Room Air BMI result Body Mass Index 31.9 Const General: cooperative Nutritional Appearance: well nourished Orientation/consciousness: patient oriented x3 HENMT Head: Yes normal to inspection General nose exam: Normal external nose present Face and sinus: Yes normal facial exam Throat: Yes posterior oropharynx normal Neck Neck: Yes normal visual inspection Chest Chest palpation & inspection: normal inspection of the chest Resp Effort & Inspection: normal respiratory effort Cardio Jugular venous distension: no JVD Rate: regular rate Rhythm: regular rhythm GI Inspection: Yes normal to inspection Palpation (GI): Soft to palpation General: Yes no CVA tenderness Back/Spine/Pelvis Back: no CVA tenderness Skin General skin exam: no rashes or lesions noted Lesions: no lesions Rashes: no rashes Wounds: no wounds Neuro General: patient oriented x3 Cranial nerves: Yes CN's II-XII intact bilaterally Course Reevaluation(s) Reevaluation #1: Asyntomatic ,call to Dr Ramirez PCP placed [phone] on lopressor 50 daily bradycardic in the monitor Time: 15:25 Reevaluation #2: Spoke with the PCP the patient has a cardiomyopathy EF about 30% no coronary artery disease, he has history of PVCs. Remained bradycardic I think it is reasonable to admit him to telemetry hold his beta-hua Time: 15:42 Medications Administered Discontinued Medications Generic Name Dose Route Start Last Admin Trade Name Freq PRN Reason Stop Dose Admin Sodium Chloride 1,000 mls @ 999 mls/hr 02/08/24 13:45 02/08/24 13:49 Ns IVCONT 02/08/24 14:45 999 mls/hr .Q1H1M DANA Administration Metoclopramide HCl 10 mg 02/08/24 13:41 02/08/24 14:18 Metoclopramide Hcl 10 Mg/2 Ml Vial IVPUSH 02/08/24 13:42 10 mg ONCE ONE Administration Medical Decision Making Medical Decision Making [facility] Narrative: Patient presented with a chief complaint on nausea vomiting, we will get labs, EKG and reassess Differential Diagnosis Differential Diagnoses: The differential diagnosis associated with the presentation includes Gastroenteritis, electrolyte abnormality/dehydration Admission/Observation Consideration of admission/observation: Escalation of care including admission/observation considered Consult Healthcare Provider Management of the patient was discussed with: Hospitalist Lab Data [facility] Lab Attestation statement: I reviewed the patient's lab results. 02/08/24 13:36 02/08/24 13:36 Labs: Lab Results 02/08/24 Range/Units 13:36 WBC 7.3 (4.8-10.8) X10*3/uL RBC 4.91 (4.60-5.80) X10*6/uL Hgb 15.9 (14.0-18.0) g/dl Hct 46.4 (42.0-52.0) % MCV 94.5 (80.0-98.0) fL MCH 32.4 (27.0-33.0) pg MCHC 34.3 (31.0-36.0) g/dl RDW 13.2 (11.0-16.0) % Plt Count TNP MPV Not Reportable Immature Gran % (Auto) 0.3 (0.0-0.4) % Neut % (Auto) 77.6 H (45-73) % Lymph % (Auto) 14.7 L (20-40) % [place] % (Auto) 7.0 (2-11) % Eos % (Auto) 0.1 (0-4) % Baso % (Auto) 0.3 (0-2) % Lymph # (Auto) 1.1 L (1.2-4.9) X10*3/uL [place] # (Auto) 0.5 (0.1-1.2) X10*3/uL Eos # (Auto) 0.0 (0.0-0.4) X10*3/uL Baso # (Auto) 0.0 (0.0-0.2) X10*3/uL Abs Immat Gran (auto) 0.02 (0.00-0.03) X10*3/uL Absolute Neuts (auto) 5.7 (2.0-8.3) x10*3/uL Absolute Nucleated RBC 0.000 (0.0-0.012) X10*3/uL Nucleated RBC % (auto) 0.0 (0.0-0.2) /100WBC Sodium 140 (135-145) mmol/L Potassium 3.8 (3.3-5.1) mmol/L Chloride 105 (96-108) mmol/L Carbon Dioxide 24 (22-29) mmol/L Anion Gap 15 (12-20) BUN 19 H (9-16) mg/dL Creatinine 1.18 (0.5-1.4) mg/dL Estim Creat Clear Calc 77.3 Estimated GFR > 60 Random Glucose 142 H (60-115) mg/dL Calcium 9.2 (8.4-10.2) mg/dL Troponin I High Sens < 2.7 (<3.5-35.0) ng/L Independent Interpretation I performed an independent interpretation of an: EKG (Normal sinus rhythm rate 48 he has a 1 single PVCs in the racing) Independent Historian Clinical information obtained from an independent historian. History obtained from or confirmed by: Other (Mother) Chronic Conditions Patient?s care impacted by: Other (Josh syndrome,cardiomyopathy) Discharge Plan Discharge Clinical Impression: Bradycardia Vomiting Qualifiers: Vomiting type: unspecified Nausea presence: with nausea Qualified Code(s): R11.2 - Nausea with vomiting, unspecified Patient Disposition: Admitted As Inpatient Print Language: Welsh
[2024-02-08 13:46] LABS: Basophils Percent Auto 0.3 % (0-2); Eosinophils Percent Auto 0.1 % (0-4); Hematocrit 46.4 % (42.0-52.0); Hemoglobin 15.9 g/dl (14.0-18.0); Imm Gran Abs Auto 0.02 X10*3/uL (0.00-0.03); Imm Gran Pct Auto 0.3 % (0.0-0.4); Lymphocytes Absolute Auto 1.1 X10*3/uL (1.2-4.9); Lymphocytes Percent Auto 14.7 % (20-40); Mean Corpuscular HGB Conc 34.3 g/dl (31.0-36.0); Mean Corpuscular Hemoglobin 32.4 pg (27.0-33.0); Mean Corpuscular Volume 94.5 fL (80.0-98.0); Monocytes Absolute Auto 0.5 X10*3/uL (0.1-1.2); Neutrophils Absolute Auto 5.7 x10*3/uL (2.0-8.3); Neutrophils Percent Auto 77.6 % (45-73); Red Blood Count 4.91 X10*6/uL (4.60-5.80); Red Cell Distribution Width 13.2 % (11.0-16.0); White Blood Count 7.3 X10*3/uL (4.8-10.8)
--- OUTSIDE RECORDS SUMMARY | 2024-02-08 13:48 | XMS_ITS | Continuity of Care Document ---
Author Organization [facility] Address [address] [facility], [place], [address] [place] [address]- Care Team Providers Care Rifle Case Repairer Name Role Phone Daksha Ramirez MD Primary Care Physician [phone] Encounter 12/03/23 - 12/10/23 [facility] [address] [facility] [place], [address] [place] [address]- Attending Physician: Yusuf Coe MD Admitting Physician: Yusuf Coe MD Referring Physician: Yusuf Coe MD Allergies, Adverse Reactions, Alerts Substance Reaction Severity Status lisinopril 1 Active 1Side effect is cough Immunizations Given and Recorded Vaccine Date Status Refusal Reason SARS-CoV-2(COVID-19)mRNA-LNP vac([id number]) 08/28/23 Recorded influenza virus vaccine, inactivated 04/12/23 Dima rded influenza virus vaccine, inactivated 04/10/22 Dima rded influenza virus vaccine, inactivated 06/12/21 Dima rded influenza virus vaccine, inactivated 1 04/23/20 Re corded influenza virus vaccine, inactivated 07/08/19 Give n influenza virus vaccine, inactivated 05/06/18 Give n influenza virus vaccine, inactivated 06/22/17 Give n influenza virus vaccine, inactivated 06/12/15 Give n influenza virus vaccine, inactivated 2 04/26/13 Gi lizz influenza virus vaccine, inactivated 04/15/11 Give n influenza virus vaccine, inactivated 05/30/10 Give n [id number] 12y+ bivalent booster vax 05/11/22 Recorded SARS-CoV-2 mRNA ([id number]) vax 12/02/21 Recorded zoster vaccine, inactivated 08/25/21 Recorded zoster vaccine, inactivated 06/12/21 Recorded SARS-CoV-2 (COVID-19) mRNA BNT-162b2 vac 07/21/21 Recorded SARS-CoV-2 (COVID-19) mRNA BNT-162b2 vac 08/24/20 Recorded SARS-CoV-2 (COVID-19) mRNA BNT-162b2 vac 08/03/20 Recorded tetanus/diphtheria/pertussis, acel(Tdap) 07/01/21 Recorded tetanus/diphtheria/pertussis, acel(Tdap) 05/25/20 Given tetanus/diphtheria/pertussis, acel(Tdap) 05/30/10 Given Fluzone (oldterm) 05/19/14 Given FluLaval (oldterm) 3 [...] EST, Supply Start Date: 06/18/20 Status: Ordered acetaminophen 500 mg oral tablet See Instructions, TAKE 2 TABLETS BY MOUTH 3 TIMES A DAY NEEDED FOR PAIN & TEMP ABOVE 100.4, NOT TO EXCEED 8 TABLETS (4 GM) PER DAY, # 60 tablet, 5 Refills, Maintenance, 11/23/23 17:48:00 EDT, [facility], 175.2, cm, 10/12/23 11:32:00 EDT, Height Start Date: 11/23/23 Status: Ordered Aspirin Low Dose 81 mg oral delayed release tablet 1 tablet, By Mouth, Daily in AM, FOR GENERAL WELLNESS., # 30 tablet, 5 Refills, Maintenance, 09/09/23 16:03:00 EST, [facility], 175.2, cm, 08/07/23 9:04:00 EST, Height Start Date: 09/09/23 Status: Ordered Denta 5000 Plus topical cream 1 applicator, Topically, 2 times a day, 0 Refills, Maintenance, 04/14/17 14:17:10 Start Date: 04/14/17 Status: Ordered hydrochlorothiazide-valsartan 12.5 mg-160 mg oral tablet 1 tablet, By Mouth, Daily in AM, # 30 tablet, 5 Refills, Maintenance, 07/19/23 17:45:00 EST, [facility], [facility], TAKE 1 TABLET BY MOUTH DAILY IN THE MORNING, 175.2, cm, 10/10/22 11:02:00 EDT, Height Start Date: 07/19/23 Status: Ordered loratadine 10 mg oral tablet See Instructions, TAKE 1 TABLET BY MOUTH DAILY NEEDED FOR ALLERGIES, # 30 tablet, Refills 5, Instructions Replace Required Details, Route to Pharmacy Electronically, [facility], 175.2, cm, 10/08/21 11:01:00 EDT, Height Start Date: 02/17/22 Status: Ordered Medipore cloth tape Medipore cloth tape, See Instructions, # 1 each, Refills 2, Tot. Refills 2, Maintenance, use as directed twice per day, 06/18/20 10:26:00 EST, Supply Start Date: 06/18/20 Status: Ordered Metoprolol Succinate ER 25 mg oral tablet, extended release 1 tablet = 25 mg, By Mouth, Daily, # 90 tablet, 0 Refills, Maintenance, 10/12/23 11:22:00 EDT, ER Tablet, Partial fill upon patient request if the prescription is for a schedule II opioid drug. Start Date: 10/12/23 Status: Ordered omeprazole 20 mg oral enteric coated capsule See Instructions, TAKE 1 CAPSULE BY MOUTH DAILY IN THE MORNING, # 30 capsule, 5 Refills, Maintenance, 11/17/23 19:31:00 EDT, [facility], 175.2, cm, 10/12/23 11:32:00 EDT, Height Start Date: 11/17/23 Status: Ordered simvastatin 40 mg oral tablet 1, tablet, By Mouth, Daily in PM, # 30 tablet, Refills 5, Maintenance, 10/09/23 10:47:00 EDT, [facility] Electronically, [facility], 175.2, cm, 08/07/23 9:04:00 EST, Height Start Date: 10/09/23 Status: Ordered Problem List Condition Confirmation Course Effective Dates Status Health Status Informant Nonischemic cardiomyopathy Confirmed 06/22/17 Active Diverticulitis Confirmed 03/08/10 Active Generalized anxiety disorder Confirmed Active Heartburn Confirmed Active Hypercholesterolemia Confirmed Active Hypertension Confirmed 05/30/10 Active Frequent ventricular premature beats Confirmed Active Perennial allergic rhinitis Confirmed Active Prediabetes Confirmed Active Prolonged QT interval Confirmed Active Systolic dysfunction Confirmed 02/05/17 Active Thrombocytopenia Confirmed 10/12/12 Active Urinary incontinence Confirmed Active Madan syndrome Confirmed Active Results Radiology Reports * Exam Date Time Procedure Performing Provider Status 12/02/23 9:39 AM US Retroperitoneum Comp Luiz Hager; Tomás (Verified) Notes: (US Retroperitoneum Comp) Reason For Exam: BPH with lower urinary tract symp RESULT: US Retroperitoneum Comp US Retroperitoneum Comp Reason: BPH with lower urinary tract symp COMPARISON: None. FINDINGS: Right kidney: 10.6 cm in length. No hydronephrosis. Normal parenchymal thickness and echotexture. No stones. No suspicious mass. Left kidney: 10.7 cm in length. No hydronephrosis. Normal parenchymal thickness and echotexture. Nostones. No suspicious mass. Urinary bladder: Normal morphology. No stone, mass, wall thickening or debris. Left ureteral jet isseen indicating ureterovesicular junction patency. The right jet is not seen. Prevoid volume: 250 cc. Postvoid volume: 21 cc. Prostate: 4.4 x 4.0 x 3.6 cm, volume 32.4 cc. Inferior aspects are not well seen. IMPRESSION: 1. No nephrolithiasis or hydronephrosis. 2. Top normal prostate size with estimated volume of 32.4 cc, potentially underestimated due to poor visualization of the inferior aspects of the prostate on the sagittal view. WSN: [id number] Ordering Physician: Yusuf Coe Dictated By: Jose Brian MD Dictated Date/Time: 12/03/23 11:33 a Reviewed By: Jose Brian MD Signed By: Jose Brian MD Signed Date/Time: 12/03/23 11:33 am Transcribed By: ARLEY Transcribed Date/Time: 12/03/23 11:31 am Social History Social History Type Response Smoking Status Never smoker entered on: 10/31/14 Sex Patient Care team information Care Team Personnel Name: Daksha Ramirez MD Position: [facility] Physician - Primary Care Member Role: PCP Address: Address: [address] [place] [id number]- Name: Yusuf Coe MD Position: [facility] Physician - Urology Med Service: Urology Member Role: Ordering Physician Address: Address: [address] [place] [address] [address] [place] [address]- Care Team Related Persons Name: ALEC AMBROSE Name: ARISTEO KNIGHT Address: home [address] [place] [address] Name: MURALI MARSH Address: home [address] [address]
[2024-02-08] MEDS: 0.9 % Sodium Chloride 1,000 ML 999 ML IVCONT (13:49)
[2024-02-08 13:55] LABS: Anion Gap 15 (12-20); Blood Urea Nitrogen 19 mg/dL (9-16); Calcium 9.2 mg/dL (8.4-10.2); Carbon Dioxide 24 mmol/L (22-29); Chloride 105 mmol/L (96-108); Creatinine Clr Calc Pharmacy 77.3; Estimated Glomerular Filt Rate > 60; Glucose Random 142 mg/dL (60-115); Potassium 3.8 mmol/L (3.3-5.1); Sodium 140 mmol/L (135-145)
[2024-02-08 14:05] LABS: Troponin-I High Sensitivity < 2.7 ng/L (<3.5-35.0)
[2024-02-08] MEDS: Metoclopramide HCl 10 MG/2 ML VIAL IVPUSH (14:18)
[2024-02-08 15:19] VITALS: BP 125/67; PULSE 41; RESP 14; TEMP 36.8; O2SAT 96
--- NOTE | 2024-02-08 15:32 | PC.NURSE ---
Pt heart rate noted to drop into 30s while sleeping, respirations even and unlabored. MD Persaud made aware, no new orders at this time.
--- NOTE | 2024-02-08 16:08 | PHA.MEDREC ---
Pharmacy Consult ? Medication Reconciliation Pharmacy has completed the medication reconciliation. Received list from PCP at bedside and confirmed he took his medications this AM.
--- NOTE | 2024-02-08 16:23 | PC.NURSE ---
Pt O2 noted to be in the 80s while sleeping, this RN placed pt on 2L of O2, O2 sat 93-95%. MD Persaud made aware.
--- NOTE | 2024-02-08 16:34 | PM.IMHP ---
History of Present Illness Date of Service: 02/08/24 Chief Complaint: Bradycardia A 58-year-old male with a pertinent history of Madan Syndrome, non-ischemic cardiomyopathy with an ejection fraction (EF) of 30%, chronic PVCs managed with metoprolol (which was recently doubled by his odd piece checker Dr. Mann), hypertension (HTN), and GERD. He was at [facility] with his correction staff when he experienced nausea and went to the bathroom. He felt dizzy, vomited, and believed he passed out. EMS was called, and he was found to have bradycardia with a heart rate in the 30s to 40s. He takes all medications as directed, and his blood pressure is within normal limits. He has no chest pain, no shortness of breath, and was feeling fine in the days and hours preceding this event. An ECG shows a prolonged QTc of 558 ms--not on QT prolonging agents Review of Systems Review of Systems: Gen: no fever Resp: no sob, no cough CV: no chest, no DEL ANGEL, no leg edema GI: No n/v, no abd pain Neuro: No confusion Yes all other systems are reviewed and are negative [facility] Medical History (Updated 02/09/24 @ 09:30 by Steve Martini MD) Non-ischemic cardiomyopathy BPH (benign prostatic hyperplasia) Pneumonia Gastroesophageal reflux disease Essential hypertension Social History Household Members: Caregiver Household Members Other:: correction Housing: Assisted Living Facility Do you presently have visiting nurse or other home services: Yes Patient Tobacco Use Status: Never used Tobacco Use of substances other than those prescribed or required for medical reasons: No Currently Displaying Signs/Symptoms of Drug Intoxication Withdrawal: No Have you been hit, kicked, punched, or otherwise hurt by someone within the past year? If so, by whom?: No Is there a partner from a previous relationship who is making you feel unsafe now?: No Are you made to feel afraid or neglected: No Advance Directives: No Advance Directives Information Provided: Yes Do you have a plan to hurt others: No Plan service: No Meds Allergies Allergy/AdvReac Type Severity Reaction Status Date / Time almond [ALMOND] Allergy Unknown UNK Verified 02/08/24 13:23 Seasonal Allergies Allergy Runny Nose Verified 02/08/24 13:23 Home Medications ?Medication ?Instructions ?Recorded ?Confirmed ?Last Taken ?Type acetaminophen 500 mg tablet 1,000 mg PO Q8H PRN Pain 07/07/23 02/08/24 Unknown History aspirin 81 mg tablet,delayed 81 mg PO DAILY 07/07/23 02/08/24 02/08/24 06:30 History release loratadine 10 mg tablet 10 mg PO DAILY PRN Allergy Symptoms 07/07/23 02/08/24 Unknown History omeprazole 20 mg capsule,delayed 20 mg PO DAILY@0630 07/07/23 02/08/24 02/08/24 06:30 History release simvastatin 40 mg tablet 40 mg PO BEDTIME 07/07/23 02/08/24 02/07/24 History valsartan 160 1 tab PO DAILY 07/07/23 02/08/24 02/08/24 06:30 History mg-hydrochlorothiazide 12.5 mg tablet fluoride (sodium) 1.1 % dental 1 appl PO BID 02/08/24 02/08/24 02/08/24 06:30 History cream (Sodium Fluoride 5000 Plus) guaifenesin 100 mg/5 mL oral 200 mg PO Q6H PRN Cough 02/08/24 02/08/24 Unknown History liquid (Mallorie-Tussin) metoprolol succinate 50 mg 50 mg PO DAILY 02/08/24 02/08/24 02/08/24 06:30 History tablet,extended release 24 hr tamsulosin 0.4 mg capsule 0.4 mg PO DAILY 02/08/24 02/08/24 02/08/24 06:30 History Physical Exam Vital Signs and Narrative: Vital Signs: Last Vital Signs Temp 98.2 F 02/08/24 15:19 Pulse 41 L 02/08/24 15:19 Resp 14 02/08/24 15:19 BP 125/67 02/08/24 15:19 Pulse Ox 96 02/08/24 15:19 O2 Del Method Room Air 02/08/24 15:19 BMI result Body Mass Index 31.9 General: AO X 3, no acute distress Resp: CTA bilateral CVS: S1,S2,RRR GI: +BS, NT, no distention Skin: No rash Neuro: motor grossly intact Psych: appropriate affect Results Labs 02/08/24 13:36 02/08/24 13:36 Labs: Laboratory Results - last 24 hr 02/08/24 13:36 MCV 94.5 MCH 32.4 MCHC 34.3 RDW 13.2 Plt Count TNP MPV Not Reportable Immature Gran % (Auto) 0.3 Neut % (Auto) 77.6 H Lymph % (Auto) 14.7 L [place] % (Auto) 7.0 Eos % (Auto) 0.1 Baso % (Auto) 0.3 Lymph # (Auto) 1.1 L [place] # (Auto) 0.5 Eos # (Auto) 0.0 Baso # (Auto) 0.0 Abs Immat Gran (auto) 0.02 Absolute Neuts (auto) 5.7 Absolute Nucleated RBC 0.000 Nucleated RBC % (auto) 0.0 Anion Gap 15 Estim Creat Clear Calc 77.3 Estimated GFR > 60 Random Glucose 142 H Calcium 9.2 Troponin I High Sens < 2.7 Assessment and Plan (1) Bradycardia: Status: Acute (2) Essential hypertension: Status: Acute (3) Pneumonia: Qualifiers: Laterality: left Lung location: lower lobe of lung Status: Inactive (4) Vomiting: Qualifiers: Nausea presence: with nausea Vomiting type: unspecified Qualified Code(s): R11.2 - Nausea with vomiting, unspecified Status: Acute Plan A 58-year-old male with a pertinent history of Madan Syndrome, non-ischemic cardiomyopathy with an ejection fraction (EF) of 30%, chronic PVCs managed with metoprolol (recently doubled by his odd piece checker Dr. Mann), hypertension (HTN), and GERD. He presents with syncope and was found to have bradycardia and a prolonged QTc. Syncope d/t symptomatic bradycardia but one ought to be concern about prolonged QTC as well -monitoring coordinator, avoid Qt prolonging agents Bradycardia--likely d/t metoprolol -HR flutuating between 40s to 60, -hold metorpolol -Apply pacer pads -check Mag, TSH HTN--resume meds, except metoprolol Prolonged Qtc--avoid Qt prolong agents, repeat ECG, mag level as above, follow with ECG GERD PPI HLD--Statin BPH--Flomax Seasonal allergy--Claritin DVT--prophylaxis--Lovenox full code Admit for at least 2 midnights stay for symptomatic bradycardia, prolonged QT, and syncope that requires close cardiac monitoring and possible future intervention if not improved. Quality Stroke Does the patient have a stroke diagnosis?: No VTE Prior VTE?: No VTE Risk Level:: Medical - moderate - high VTE Device Contraindication: Treatment Not Indicated VTE Drug Contraindication: N/A - Med Ordered
[2024-02-08 17:28] LABS: Magnesium 1.9 mg/dL (1.6-2.6)
[2024-02-08] MEDS: Enoxaparin Sodium 40 MG/0.4 ML SYRINGE SUBCUT (17:39)
[2024-02-08] MEDS: 0.9 % Sodium Chloride 1,000 ML 75 ML IVCONT (17:39)
[2024-02-08 17:46] LABS: TSH reflex Free T4 1.54 uIU/mL (0.32-4.0)
[2024-02-08 20:00] VITALS: BP 146/71; PULSE 53; RESP 20; TEMP 36.6; O2SAT 96
[2024-02-08] MEDS: Atorvastatin Calcium 20 MG TABLET PO (20:27)
[2024-02-08 23:17] VITALS: BP 107/55; PULSE 54; RESP 18; TEMP 36.5; O2SAT 93
[2024-02-09 03:37] VITALS: BP 112/56; PULSE 55; RESP 18; TEMP 36.3; O2SAT 96
[2024-02-09] MEDS: 0.9 % Sodium Chloride 1,000 ML 75 ML IVCONT (06:16)
[2024-02-09 07:43] VITALS: BP 128/56; PULSE 61; RESP 20; TEMP 36.6; O2SAT 95
[2024-02-09 08:01] VITALS: BP 128/56
[2024-02-09] MEDS: Valsartan 160 MG TABLET PO (08:01)
[2024-02-09] MEDS: 0.9 % Sodium Chloride Flush 3 ML SYRINGE IVFLUSH (08:01)
[2024-02-09] MEDS: Tamsulosin HCL 0.4 MG CAPSULE PO (08:01)
[2024-02-09] MEDS: hydroCHLOROthiazide 12.5 MG TABLET PO (08:01)
[2024-02-09] MEDS: Aspirin Enteric Coated 81 MG TABLET.DR PO (08:02)
--- NOTE | 2024-02-09 09:26 | PM.CNCAR ---
History of Present Illness History of Present Illness Date of Service: 02/09/24 Chief complaint: bradycardia Narrative: This is a cardiology consultation regarding syncope. Patient is apparently followed at [facility]. Has a history of Grey syndrome, nonischemic cardiomyopathy, LVEF 30%, chronic PVCs. Apparently, he is on beta-blockers at baseline and per documentation, his metoprolol has been troubled by his reconditioning associate. He was apparently at [facility] with [facility] staff. At that time, he apparently had some nausea. Then went to the bathroom. Was dizzy, vomited and he passed out. Per H&P, EMS had noted bradycardia with a heart rate in the 30s/40s. Subsequently, he is admitted for further care. Today he states that he feels okay. It does not not have any other complaints like chest pain or shortness of breath. Review of Systems Review of Systems: Yes all other systems are reviewed and are negative Constitutional: Constitutional: Reports as per HPI and Reports no additional constitutional complaints Eyes: Eyes: Reports as per HPI and Denies no additional eye complaints ENT: Denies system reviewed and no additional complaints, except as documented and Reports as per HPI Cardiovascular: Cardiovascular: Reports as per HPI, Reports no additional cardiovascular complaints, Denies acrocyanosis, Denies cool extremities, Denies chest pain, Denies leg edema, Denies lightheadedness, Reports Loss of Consciousness, Denies palpitations and Denies dyspnea Respiratory: Respiratory: Reports as per HPI, Denies no additional respiratory complaints and Denies dyspnea Gastrointestinal: Gastrointestinal: Reports as per HPI and Denies no additional gastrointestinal complaints Genitourinary: Genitourinary: Reports no additional male genitourinary complaints and Reports as per HPI Musculoskeletal: Musculoskeletal: Reports no additional musculoskeletal complaints and Reports as per HPI Integumentary/Breasts: Skin/Breast: Reports system reviewed and no additional complaints, except as docu Neurologic: Reports system reviewed and no additional complaints, except as documented and Reports as per HPI Psychiatric: Psychiatric: Reports no additional psychiatric complaints and Reports as per HPI Endocrine: Endocrine: Reports no additional endocrine complaints, Reports as per HPI and Denies palpitations Hematologic/Lymphatic: Hematologic/Lymphatic: Reports no additional hematologic/lymphatic complaints and Reports as per HPI Allergic/Immunologic: Allergic/Immunologic: Reports no additional allergic/immunologic complaints and Reports as per HPI [facility] Past Medical History Medical History (Updated 02/09/24 @ 09:30 by Steve Martini MD) Non-ischemic cardiomyopathy BPH (benign prostatic hyperplasia) Pneumonia Gastroesophageal reflux disease Essential hypertension Family History Pertinent family history: Patient denies any pertinent family history. He is not aware of any cardiac problems in his family members. Social History Social History Household Members: Caregiver Household Members Other:: [facility] Housing: Assisted Living Facility Do you presently have visiting nurse or other home services: Yes Patient Tobacco Use Status: Never used Tobacco Use of substances other than those prescribed or required for medical reasons: No Have you been hit, kicked, punched, or otherwise hurt by someone within the past year? If so, by whom?: No Is there a partner from a previous relationship who is making you feel unsafe now?: No Are you made to feel afraid or neglected: No Advance Directives: No Advance Directives Information Provided: Yes Do you have a plan to hurt others: No Plan service: No Meds Allergies Allergy/AdvReac Type Severity Reaction Status Date / Time almond [ALMOND] Allergy Unknown UNK Verified 02/08/24 13:23 Seasonal Allergies Allergy Runny Nose Verified 02/08/24 13:23 Active Medications: Current Medications Acetaminophen (Acetaminophen 325 Mg Tablet) 650 mg PO Q6H PRN PRN Reason: Pain, Mild (Pain Scale 1-3), fever or headache Aspirin (Aspirin Enteric Coated 81 Mg Tablet.) 81 mg PO DAILY [facility] Last Admin: 02/09/24 08:02 Dose: 81 mg Atorvastatin Calcium (Atorvastatin Calcium 20 Mg Tablet) 20 mg PO BEDTIME [facility] Last Admin: 02/08/24 20:27 Dose: 20 mg Calcium Carbonate (Calcium Carbonate 750 Mg Tab.Chew) 750 mg PO Q4H PRN PRN Reason: Heartburn Enoxaparin Sodium (Enoxaparin Sodium 40 Mg/0.4 Ml Syringe) 40 mg SUBCUT Q24H [facility] Last Admin: 02/08/24 17:39 Dose: 40 mg Guaifenesin (Guaifenesin 100 Mg/5 Ml Liquid) 10 ml PO Q6H PRN PRN Reason: Cough Hydrochlorothiazide (Hydrochlorothiazide 12.5 Mg Tablet) 12.5 mg PO DAILY [facility] Last Admin: 02/09/24 08:01 Dose: 12.5 mg Sodium Chloride (Ns) 1,000 mls @ 75 mls/hr IVCONT .[id number] [facility] Last Admin: 02/09/24 06:16 Dose: 75 mls/hr Loratadine (Loratadine 10 Mg Tablet) 10 mg PO DAILY PRN PRN Reason: Allergy Symptoms Magnesium Hydroxide (Milk Of Magnesia 30 Ml Oral.Susp) 30 ml PO DAILY PRN PRN Reason: Constipation Melatonin (Melatonin 3 Mg Tablet) 6 mg PO BEDTIME PRN PRN Reason: Insomnia Omeprazole (Omeprazole 20 Mg Capsule.Dr) 20 mg PO DAILY@0630 [facility] Last Admin: 02/09/24 06:09 Dose: Not Given Sodium Chloride (0.9 % Sodium Chloride Flush 3 Ml Syringe) 3 ml IVFLUSH QSHIFT [facility] Last Admin: 02/09/24 08:01 Dose: 3 ml Tamsulosin HCl (Tamsulosin Hcl 0.4 Mg Capsule) 0.4 mg PO DAILY [facility] Last Admin: 02/09/24 08:01 Dose: 0.4 mg Valsartan (Valsartan 160 Mg Tablet) 160 mg PO DAILY [facility] Last Admin: 02/09/24 08:01 Dose: 160 mg Home Medications ?Medication ?Instructions ?Recorded ?Confirmed ?Last Taken ?Type acetaminophen 500 mg tablet 1,000 mg PO Q8H PRN Pain 07/07/23 02/08/24 Unknown History aspirin 81 mg tablet,delayed 81 mg PO DAILY 07/07/23 02/08/24 02/08/24 06:30 History release loratadine 10 mg tablet 10 mg PO DAILY PRN Allergy Symptoms 07/07/23 02/08/24 Unknown History omeprazole 20 mg capsule,delayed 20 mg PO DAILY@0630 07/07/23 02/08/24 02/08/24 06:30 History release simvastatin 40 mg tablet 40 mg PO BEDTIME 07/07/23 02/08/24 02/07/24 History valsartan 160 1 tab PO DAILY 07/07/23 02/08/24 02/08/24 06:30 History mg-hydrochlorothiazide 12.5 mg tablet fluoride (sodium) 1.1 % dental 1 appl PO BID 02/08/24 02/08/24 02/08/24 06:30 History cream (Sodium Fluoride 5000 Plus) guaifenesin 100 mg/5 mL oral 200 mg PO Q6H PRN Cough 02/08/24 02/08/24 Unknown History liquid (Mallorie-Tussin) metoprolol succinate 50 mg 50 mg PO DAILY 02/08/24 02/08/24 02/08/24 06:30 History tablet,extended release 24 hr tamsulosin 0.4 mg capsule 0.4 mg PO DAILY 02/08/24 02/08/24 02/08/24 06:30 History Physical Exam Vital Signs: Vital Signs: Last Vital Signs Temp 97.8 F 02/09/24 07:43 Pulse 61 02/09/24 07:43 Resp 20 02/09/24 07:43 BP 128/56 L 02/09/24 08:01 Pulse Ox 95 02/09/24 07:43 O2 Del Method Room Air 02/09/24 07:43 BMI result Body Mass Index 31.9 Const: General: comfortable and no acute distress Orientation/consciousness: patient oriented x3 HEENT: Other: Unremarkable Head: Yes normal to inspection Neck: Neck: Yes normal visual inspection Chest: Chest palpation & inspection: normal inspection of the chest Resp: Auscultation: clear to auscultation bilaterally Cardio: Palpation: normal PMI Heart sounds: S1 normal heart sound present, S2 normal heart sound present, no gallops, Murmur heart sound present systolic II/ and at the right sternal border and no rubs GI: Palpation (GI): Soft to palpation Back/Spine/Pelvis: Other: unremarkable Skin: General skin exam: no rashes or lesions noted Neuro: General: patient oriented x3 Extrem: General: Yes normal to inspection Psych: Mental Status: mental status grossly normal Objective Labs and Meds 02/08/24 13:36 02/08/24 13:36 Lab results: Laboratory Results - last 24 hr 02/08/24 13:36 WBC 7.3 RBC 4.91 Hgb 15.9 Hct 46.4 MCV 94.5 MCH 32.4 MCHC 34.3 RDW 13.2 Plt Count TNP MPV Not Reportable Immature Gran % (Auto) 0.3 Neut % (Auto) 77.6 H Lymph % (Auto) 14.7 L [place] % (Auto) 7.0 Eos % (Auto) 0.1 Baso % (Auto) 0.3 Lymph # (Auto) 1.1 L [place] # (Auto) 0.5 Eos # (Auto) 0.0 Baso # (Auto) 0.0 Abs Immat Gran (auto) 0.02 Absolute Neuts (auto) 5.7 Absolute Nucleated RBC 0.000 Nucleated RBC % (auto) 0.0 Sodium 140 Potassium 3.8 Chloride 105 Carbon Dioxide 24 Anion Gap 15 BUN 19 H Creatinine 1.18 Estim Creat Clear Calc 77.3 Estimated GFR > 60 Random Glucose 142 H Calcium 9.2 Magnesium 1.9 Troponin I High Sens < 2.7 TSH 1.54 ECG Interpretation: EKG with underlying sinus rhythm at 60/Min; frequent PVCs in a bigeminal pattern. Difficult to calculated corrected QT because of bigeminy. In other EKG, underlying sinus bradycardia at 48/Min. Isolated PVC. In that EKG, corrected QT seems to be within acceptable limits. Assessment and Plan (1) Bradycardia: Status: Acute (2) Syncope and collapse: Status: Acute (3) Non-ischemic cardiomyopathy: Status: Acute Plan Labs show a creatinine of 1.18. BUN of 19. High sensitivity troponin within normal limits. Overall, stated nonischemic cardiomyopathy, PVCs, admitted with syncopal episode. In telemetry, he is having episodes of bigeminy. One episode of NSVT for 4 beats. At other times, sinus rhythm around 60/Min. Will discuss with his reconditioning associate regarding further plan. Keep on telemetry for the time being. Discussed with staff from the [place] [facility]. Procedures Date of Service Date of Service: 02/09/24
--- NOTE | 2024-02-09 09:50 | MHC.CM.PN ---
IMM 02/09/24, Pt lives in a ch[facility], he is independent with all personal care, no DME. HCP is his mother, Rubia, pt will sign form here to be added to chart. long term staff is present with pt., can transport home at DC. PCP is Dr. Ramirez. DCP: home with services. CM to follow and assist with DC plan.
[2024-02-09 10:47] VITALS: BP 122/74; PULSE 55; RESP 16; TEMP 36.7; O2SAT 94
--- NOTE | 2024-02-09 10:47 | PM.DS ---
DS: Providers Provider Date of Service: 02/09/24 Date of admission: 02/08/24 17:09 Primary care physician: Daksha Ramirez MD Consults: 02/08/24 17:12 Consult to Cardiology Routine Consulting Provider: [facility] Reason for consultation: symptomatic bradycardia Has provider been notified: Yes DS: Diagnosis Discharge Diagnosis (1) Bradycardia: Status: Acute (2) Essential hypertension: Status: Acute (3) Pneumonia: Status: Inactive (4) Vomiting: Status: Acute DS: Summary Hospital Course Hospital Course: A 58-year-old male with a pertinent history of Madan Syndrome, non-ischemic cardiomyopathy with an ejection fraction (EF) of 30%, chronic PVCs managed with metoprolol (which was recently doubled by his tank welder Dr. Mann), hypertension (HTN), and GERD. He was at [facility] with his [facility]pc staff when he experienced nausea and went to the bathroom. He felt dizzy, vomited, and believed he passed out. EMS was called, and he was found to have bradycardia with a heart rate in the 30s to 40s. He takes all medications as directed, and his blood pressure is within normal limits. He has no chest pain, no shortness of breath, and was feeling fine in the days and hours preceding this event. An ECG shows a prolonged QTc of 558 ms--not on QT prolonging agents Hospital course: A 58-year-old male with a pertinent history of Madan Syndrome, non-ischemic cardiomyopathy with an ejection fraction (EF) of 30%, chronic PVCs managed with metoprolol (recently doubled by his tank welder Dr. Mann), hypertension (HTN), and GERD. He presents with syncope and was found to have bradycardia and a prolonged QTc. Syncope d/t symptomatic bradycardia but one ought to be concern about prolonged QTC. He was monitored on telemetry and noted to have episodes of bigeminy, one episode of NSVT for 4 beats and other times, sinus rhythm around 60/Min. Cardiology advises transfering to [facility] for EP statudy and possible AICD vs pacemaker implantation Bradycardia--likely d/t metoprolol. Metoprolol is on hold, now SR with frequent PVC, unerlying rate of 60, TSH, jessica well normal. HTN--Valsarta-HCTZ, renal function, electrolytes within normal Prolonged Qtc--avoid Qt prolong agents, repeat ECG, mag level as above, follow with ECG. At baseline not on QT prolonging agents and reportedly has chronically high QTc GERD PPI HLD--Statin BPH--Flomax Seasonal allergy--Claritin To [facility] Time Attestation Discharge Coordination Time (in mins): 35 Quality: Safe Use of Opioids Does Pt have an Active Cancer Diagnosis on the Problem List?: No Quality: Stroke Does the patient have a stroke diagnosis?: No Physical Exam Vital Signs: Vital Signs: Last Vital Signs Temp 97.8 F 02/09/24 07:43 Pulse 61 02/09/24 07:43 Resp 20 02/09/24 07:43 BP 128/56 L 02/09/24 08:01 Pulse Ox 95 02/09/24 07:43 O2 Del Method Room Air 02/09/24 07:43 BMI result Body Mass Index 31.9 DS: Data Data Completed and Pending Labs on day of discharge: Laboratory Results - last 24 hr 02/08/24 13:36 WBC 7.3 RBC 4.91 Hgb 15.9 Hct 46.4 MCV 94.5 MCH 32.4 MCHC 34.3 RDW 13.2 Plt Count TNP MPV Not Reportable Immature Gran % (Auto) 0.3 Neut % (Auto) 77.6 H Lymph % (Auto) 14.7 L [place] % (Auto) 7.0 Eos % (Auto) 0.1 Baso % (Auto) 0.3 Lymph # (Auto) 1.1 L [place] # (Auto) 0.5 Eos # (Auto) 0.0 Baso # (Auto) 0.0 Abs Immat Gran (auto) 0.02 Absolute Neuts (auto) 5.7 Absolute Nucleated RBC 0.000 Nucleated RBC % (auto) 0.0 Sodium 140 Potassium 3.8 Chloride 105 Carbon Dioxide 24 Anion Gap 15 BUN 19 H Creatinine 1.18 Estim Creat Clear Calc 77.3 Estimated GFR > 60 Random Glucose 142 H Calcium 9.2 Magnesium 1.9 Troponin I High Sens < 2.7 TSH 1.54 Discharge Plan Discharge Anticipated Discharge Date/Time: 02/09/24 10:43 Patient Disposition: Xfer Inpatient Rehab Fac Discharge Diagnosis: Symptomatic Bradycardia Referrals: Daksha Ramirez MD [Primary Care Provider] - 1 Week Discharge Medications: Continued tamsulosin 0.4 mg capsule 0.4 mg PO DAILY fluoride (sodium) [Sodium Fluoride 5000 Plus] 1.1 % cream 1 appl PO BID guaifenesin [Mallorie-Tussin] 100 mg/5 mL Liquid 200 mg PO Q6H PRN (Reason: Cough) valsartan-hydrochlorothiazide 160-12.5 mg tablet 1 tab PO DAILY aspirin 81 mg tablet,delayed release (DR/EC) 81 mg PO DAILY acetaminophen 500 mg tablet 1,000 mg PO Q8H PRN (Reason: Pain) simvastatin 40 mg tablet 40 mg PO BEDTIME omeprazole 20 mg capsule,delayed release(DR/EC) 20 mg PO DAILY@0630 loratadine 10 mg tablet 10 mg PO DAILY PRN (Reason: Allergy Symptoms) Discontinued metoprolol succinate 50 mg tablet extended release 24 hr 50 mg PO DAILY Discharge Orders: Discharge Order (Routine); Ordered 02/09/24 Ordered By: Mat Van Diet: Advance to usual diet Activity on Discharge: As tolerated Stand Alone Forms: Patient Portal Discharge page Print Language: Slovenian Care Plan Goals: management of symptomatic bradycardia with possible implantation of ICD simple pacemaker Health Concerns: symptomatic bradycardia syncope and collapse nonischemic cardiomyopathy with low ejection fraction Plan of Treatment: transferred to [facility] for further management and possible intervention Assessment: see above Discharge Date/Time: 02/09/24 18:31
[2024-02-09 15:37] VITALS: BP 136/65; PULSE 53; RESP 16; TEMP 37.1; O2SAT 96
== END 2024-02-09 18:31 | disposition short-term general hospital (02) | DRG 308 ==
LOC: HO.ED 15:40 → HO.EDOVER 17:17 → HO.IMC 18:45
PROVIDERS: Admitting Provider Internal Medicine; Emergency Provider Emergency Medicine; PCP Internal Medicine; Visit Provider Internal Medicine
DX: R00.1 Bradycardia, unspecified (principal); J18.9 Pneumonia, unspecified organism; Q93.82 Williams syndrome; I42.8 Other cardiomyopathies; I47.20 Ventricular tachycardia, unspecified; I49.3 Ventricular premature depolarization; T44.7X5A Adverse effect of beta-adrenoreceptor antagonists, initial encounter; E78.5 Hyperlipidemia, unspecified; N40.0 Benign prostatic hyperplasia without lower urinary tract symptoms; I10 Essential (primary) hypertension; K21.9 Gastro-esophageal reflux disease without esophagitis; R94.31 Abnormal electrocardiogram [ECG] [EKG]; Z79.82 Long term (current) use of aspirin; Z79.899 Other long term (current) drug therapy
CPT/HCPCS: 36415; 80048; 83735; 84443; 84484; 85025; 93005; 99285; J1650; J2765

== ENCOUNTER → 2024-02-08 13:07 | Outpatient (BNV) | payer MEDICARE, MEDICAID, SELFPAY | PROVIDERS: Admitting Provider Internal Medicine; Emergency Provider Emergency Medicine; PCP Internal Medicine; Visit Provider Internal Medicine | DX: I49.3 Ventricular premature depolarization (principal) | CPT/HCPCS: 93010 ==

== ENCOUNTER → 2024-02-08 17:09 | Outpatient (BNV) | payer MEDICARE, MEDICAID, SELFPAY | PROVIDERS: Admitting Provider Internal Medicine; Emergency Provider Emergency Medicine; PCP Internal Medicine; Visit Provider Internal Medicine | DX: R00.1 Bradycardia, unspecified (principal); I10 Essential (primary) hypertension; J18.9 Pneumonia, unspecified organism; R11.2 Nausea with vomiting, unspecified | CPT/HCPCS: 99223; 99239 ==

== ENCOUNTER → 2024-02-08 17:09 | Outpatient (BNV) | payer MEDICARE, MEDICAID, SELFPAY | PROVIDERS: Admitting Provider Internal Medicine; Emergency Provider Emergency Medicine; PCP Internal Medicine; Visit Provider Internal Medicine | DX: R00.1 Bradycardia, unspecified (principal); R55 Syncope and collapse; I42.8 Other cardiomyopathies | CPT/HCPCS: 99223 ==

== ENCOUNTER 2024-06-27 11:16 | Outpatient (REF) | payer MEDICARE, MEDICAID, SELFPAY ==
[2024-06-27 13:07] LABS: Alanine Aminotransferase 21 U/L (0-40); Albumin Level 3.7 g/dL (3.5-5.0); Alkaline Phosphatase 58 U/L (39-117); Aspartate Amino Transferase 23 U/L (5-37); Bilirubin Direct 0.2 mg/dL (0.0-0.5); Bilirubin Total 0.5 mg/dL (0.0-1.0); Total Protein 6.9 g/dL (6.5-8.0)
[2024-06-27 13:08] LABS: Free T4 (Free Thyroxine) 1.32 ng/dL (0.71-1.85); Thyroid Stimulating Hormone 0.86 uIU/mL (0.32-4.0)
== END 2024-06-27 11:17 | disposition home or self-care (01) ==
LOC: HO.LAB 11:16
PROVIDERS: PCP Internal Medicine; Visit Provider Student in an Organized Health Care Education/Training Program
DX: E78.2 Mixed hyperlipidemia (principal); I10 Essential (primary) hypertension; I42.8 Other cardiomyopathies
CPT/HCPCS: 36415; 80076; 84439; 84443

== ENCOUNTER 2024-09-08 08:57 | Outpatient (AMB) | payer MEDICARE, MEDICAID, SELFPAY ==
--- NOTE | 2024-09-08 08:59 | MHC.OFFWIV ---
Intake Vital Signs 09/08/24 09:00 Weight 205 lb BP 138/90 H Blood Pressure Location Lt brachial Position Sitting Pulse 47 L Pulse Source Pulse Oximeter Pulse Oximetry (%) 96 Oxygen Delivery Method Room Air Intake Visit Reasons: EP RT toe nail fell off Intake Note: Patient here for pinky toe nail on right foot came off this morning. Patient Tobacco Use Status: Never used Tobacco Allergies almond [ALMOND] Allergy (Unknown, Verified 09/08/24 09:06) UNK Seasonal Allergies Allergy (Verified 09/08/24 09:06) Runny Nose Do you need a note to return to daycare/school/sports/work: No HPI HPI Comments History of Present Illness Details History of Present Illness - The patient is a 59-year-old male presenting with his right pinky toenail fell off. - Noted avulsion of the toenail from the little pinky toe, occurred spontaneously overnight without incident of trauma. - Initial bleeding was reported, but self-resolved. - The patient has diabetes mellitus, increasing the need for vigilance regarding foot injuries. - denies pain, warmth or drainage Physical Exam General: Cooperative, healthy appearing, comfortable, no acute distress and well developed Orientation: Patient oriented x3 Limitations: No limitations Head: Normal to inspection Ears: Hearing grossly normal bilaterally Nose: Normal Nxternal nose present Face and sinus: ormal facial exam Eyes: Appearance normal, both eyes and all related structures Neck: Normal visual inspection and Yes full ROM Respiratory: Normal respiratory effort and able to speak in complete sentences. 2 Skin: No rashes or lesions noted Neuro: Patient oriented x3 Extremities: Normal to inspection, except for right 5th toenail which has come off. No warmth, erythema, drainage, edema or signs of infection noted. [facility] Medical History (Updated 09/08/24 @ 09:22 by Jania Martinez PA-C) Non-ischemic cardiomyopathy BPH (benign prostatic hyperplasia) Pneumonia Gastroesophageal reflux disease Essential hypertension Social History Household Members: Caregiver Household Members Other:: custodial Housing: Assisted Living Facility Do you presently have visiting nurse or other home services: Yes Patient Tobacco Use Status: Never used Tobacco service: No Review of Systems Const All systems reviewed & are unremarkable except as noted in HPI and below Physical Exam Vital Signs: Last Vital Signs Pulse 47 L 09/08/24 09:00 BP 138/90 H 09/08/24 09:00 Pulse Ox 96 09/08/24 09:00 Oxygen Delivery Method Room Air 09/08/24 09:00 Assessment & Plan Assessment & Plan (1) Toenail torn away: Code(s): S99.829A - Other specified injuries of unspecified foot, initial encounter Plan: The area was cleaned and a clean Band-Aid was applied. There were no signs of infection, and bleeding has resolved. Monitoring for signs of infection is necessary due to the patient?s diabetes mellitus. Expected regrowth of the toenail will take several months, with advice to maintain cleanliness and observe for any abnormal changes. Filled out paperwork for patient's custodial. Patient was informed and verbally consented to the use of an ambient scribe for clinic note documentation during this visit. Coding Level of Care Code New Pt Level 3 (75419) Diagnoses Toenail torn away S99.829A
[2024-09-08 09:00] VITALS: BP 138/90; PULSE 47; O2SAT 96
--- OUTSIDE RECORDS SUMMARY | 2024-09-08 09:29 | XMS_ITS | Data Portability ---
Author Organization [facility]EEANN odom [address] Address [address] [place] [address] Assessment No assessment recorded. Plan of Treatment Reminders Order Date Submit Date Provider Last Modified By Organization Details Last Modified Time Details Appointments None recorded. Lab rapid strep group A, throat 2022 023 [facility], [address] [place] [address], [phone], 3 20:22:20 rapid flu (A+B) 2022 023 [email or web address] [facility], [address] [place] [address], [phone], 3 20:22:20 Referral None recorded. Procedures None recorded. Surgeries None recorded. Imaging None recorded. Medication Orders amoxicillin 875 mg-potassiu m clavulanate 125 mg tablet 2022 023 [facility], [address] [place] [address], [id number], 3 12:00:14 Patient TargetsNo targets recorded. Patient Instructions Encounter Date Encounter Id Patient Instructions Last Modified By Organization Details Last Modified Time 08/25/2022 [id number] Based on your Presentation, Exam, and Lab Testing you are being diagnosed with uvulitis Your Rapid Strep Test was Negative. Most likely your sore throat is being caused by a virus, post nasal drip, or silent acid reflux. However, the way that your uvula looks is concerning and I want to cover you with an antibiotic I am going to prescribe you and antibiotic to cover this infection. Please be sure to complete the full course of this antibiotic to prevent antibiotic resistance. It is also important to complete this antibiotic because this infection is what causes Scarlet Fever/Rheumatic Heart Disease. Antibiotics will typically take 4-5 days to start to work with symptom improvement. The following are my other recommendations to help with symptoms and is important for this diagnosis: 1. Do not share any food or drinks - strep is passed through direct saliva exchange (NOT IN THE AIR) 2. Change your toothbrush in 3-4 days so that you don't re-infect yourself after you complete the antibiotic. 3. Take Ibuprofen or Tylenol if you do not have any allergies to these medications. If you take a blood thinner you should not take NSAIDS like Ibuprofen. These medication will help with the inflammation in your respiratory tract which should help the cough. (I would alternate between Tylenol 650 mg and your Ibuprofen 600 mg every 4 hours) 4. Do not take any Cold Medications that have a Decongestant in it - this will dry out your throat and make the sore throat worse. 5. Drinking Hot Tea with honey can help coat and soothe your throat. 6. You would be considered contagious for the next 24-48 hours, or until fever resolves. I would be seen again if you develop any of the following symptoms. 1. Fever > 101.0 2. Stiff neck - where you can't turn your neck 3. Trouble swallowing your saliva - drooling 4. Swelling of a lymph node in your throat that is painful to touch 5. Difficulty breathing 6. Severe Headache Thank you for using [facility] today, please feel free to contact our office if you have any questions or concerns. Not available 08/25/2022 20:22:19 Reason for Referral None Reported. Results Created Date Observation Date Name Description Value Unit Range Abnormal Flag Note LastModifiedBy Organization Detail LastModifiedTime 08/25/1908/25/2022 rapid flu (A+B) Unknown Analyte Normal = Negati ve Not Available [facility] [address] [place] [address], [place], [address], 08/25/2022 18:34:25 08/25/19 23 08/25/2022 rapid flu (A+B) Unknown Analyte Normal = Negati ve Not Available [address] [place] [address] [place], [address], 08/25/2022 18:34:25 08/25/19 23 08/25/2022 rapid flu (A+B) Unknown Analyte negati ve Not Available [address] [place] [address] [place], [address], 08/25/2022 18:34:25 08/25/19 23 08/25/2022 rapid flu (A+B) Unknown Analyte negati ve Not Available [address] [place] [address] [place], [address], 08/25/2022 18:34:25 08/25/19 23 08/25/2022 rapid strep group A, throa t Unknown Analyte Normal = Negati ve Not Available [address] [place] [address] [place], [address], 08/25/2022 18:30:52 08/25/1908/25/2022 rapid strep group A, throa t Unknown Analyte negati ve Not Available [address] [place] [address] [place], [address], 08/25/2022 18:30:52 Result Notes None recorded. Problems Name Problem SNOMED Code Status Onset Date Resolution Date Notes Provider Name and Address Organization Details Recorded Time Acid reflux 870944740 Active 2022 IRIS COUVERTIE R null, [place] - [facility] 3 18:48:20 Essential hypertension 84806938 Active 2022 IRIS COUVERTIE R null, PA - [facility] 3 18:48:35 Hyperlipidemia 30071470 Active 2022 IRIS COUVERTIE R null, PA - [facility] 3 18:49:44 Problem Notes None recorded. Medical Equipment None Reported. Allergies No known drug allergies Medications Name Sig Start Date Stop Date Status Note LastModified by Organization Details LastModified Time bacitracin 500 unit/gram eye ointment active Not Available Not Available Not Available amoxicillin 875 mg-potassium clavulanate 125 mg tablet Take 1 tablet twice a day by oral route for 10 days. 023 active Not Available Not Available Not Avai lable loratadine active Not Available Not Av ailable Not Available valsartan active Not Available Not Hailey ilable Not Available aspirin active Not Available Not Avail able Not Available omeprazole active Not Available Not Av ailable Not Available carvedilol active Not Available Not Av ailable Not Available simvastatin active Not Available Not A vailable Not Available Tylenol active Not Available Not Avail able Not Available Denta 5000 Plus active Not Available Not Available Not Available Vitals Date Recorded Body height Body mass index (BMI) Body weight Body temperature Respiratory rate Heart rate Oxygen saturation Oxygen saturation in Arterial blood by Pulse oximetry Systolic blood pressure Diastolic blood pressure Provider Name and Address Organization Details Last Updated DateTime 3 175.26 cm 23.6 kg/m2 90522.7 8 g 97.8 [degF] 20 /min 78 /min 97 % 97 % 128 mm[Hg] 72 mm[Hg] KRISTEN Baez PA - [facility] 18:38:44 Social History Question Answer Notes LastModified by Organizat ion Details LastModified Time Tobacco Smoking Status Never Smoker KRISTEN muhammad PA - [facility] 08/25/2022 18:33:51 What Is Your Level Of Alcohol Consumption? None Information not available 08/25/2022 What Is Your Water Source? City Information not available 08/25/2022 What Is Your Heat Source? Gas Information not available 08/25/2022 Have You Had Direct Contact, Or Contact During Intimacy, With Monkeypox Rash, Scabs, Or Body Fluids From A Person With Monkeypox? No Information not available 08/25/2022 Do You Use Any Illicit Or Recreational Drugs? No Information not available 08/25/2022 Have You Recently Traveled Abroad? No Information not available 08/25/2022 Do You Or Have You Ever Used Any Other Forms Of Tobacco Or Nicotine? No Information not available 08/25/2022 Sex: Unknown Functional Status None recorded. Mental Status None recorded. Family History Relationship Description Onset Age of this Age Resolved Age Notes LastModified by Organization Details LastModified Time Father No current problems or disability Not available 18:33:40 Mother No current problems or disability Not available 18:33:40 Medical History No medical history recorded. Past Encounters Encounter ID Performer Location Encounter Start Date Encounter Closed Date Diagnosis/Indication Diagnosis SNOMED-CT Code Diagnosis ICD10 Code Diagnosis Note [id number] [address] [address] 04/20/2016 13:53:50 04/20/2016 14:37:05 [id number] [address] [address] 04/20/2016 14:00:05 04/20/2016 14:37:12 [id number] LEEANN MONSON [facility] [address] [place] [address] 08/25/2022 16:32:36 08/25/2022 20:25:06 Uvulitis 185701140 K12.2 Health Concerns Section Related Observation LastModified by Organization Detai ls LastModified Time None Recorded Concern Status LastModified by Organization Details LastModified Time None Recorded Advance Directives Directive None Recorded Payers Encounter Date Sequence Insurance Name Policy Number Policy Glez Covered Member ID Glez Member ID Guarantor Name 04/20/2016 2 [place] [employer] Brodie Cancino [id number] Brodie Cancino 04/20/2016 1 [place] [facility] Brodie Cancino [id number] Brodie Cancino 04/20/2016 2 [place] [employer] Brodie Cancino [id number] Brodie Cancino 04/20/2016 1 [place] Brodie Cancino [id number] Brodie Cancino 08/25/2022 1 [place] [facility] Brodie Cancino [id number] delmis Cancino Notes Date Note Type Note Provider Name and Address Organization Details Recorded Time 3 text/html Sore throatReported bypatient.Source of patient informationInformation obtained from patient; Patient arrived at Urgent Care ambulatory Location:throat Severity:moderate Quality:hurts to swallow Onset/Timin days Associated Symptoms:no cough; no sputum production; no shortness of breath; no wheezing; no sinus pain; no vomiting; No hoarseness;sore throat;nauseaNotes:Sudden onset today- Throat sore. Periods of nausea. No fever. No runny nose. Feels swollen in the throat. No strep exposures No OTC medication taken. LEEANN MONSON [address] [place], [address], [place] - [facility] 08/25/2022 20:25:07
== END 2024-09-08 09:32 | disposition home or self-care (01) ==
PROVIDERS: PCP Internal Medicine; Visit Provider Physician Assistant
DX: S99.829A Other specified injuries of unspecified foot, initial encounter (principal)

== ENCOUNTER → 2024-09-08 08:57 | Outpatient (BNVA) | payer MEDICARE, MEDICAID, SELFPAY | PROVIDERS: PCP Internal Medicine | DX: S99.821D Other specified injuries of right foot, subsequent encounter (principal) | CPT/HCPCS: 99202 ==

== ENCOUNTER 2024-09-30 18:57 | Emergency (ER) | payer MEDICARE, MEDICAID, SELFPAY ==
--- NOTE | ~2024-09-30 | CT_ITS ---
CLINICAL HISTORY: fall CT maxillofacial without contrast Comparison: CT/SR - CT HEAD/BRAIN WO IV CON - 10/01/24 00:17 EDT Findings: Small left frontal scalp contusion. No acute fractures. Temporomandibular joints are intact. Paranasal sinuses and mastoid air cells clear. Orbits normal. Visualized intracranial contents are within normal limits. No foreign bodies. IMPRESSION: No acute fracture. Small left anterior frontal scalp contusion. This document has been electronically signed by: True Eddy MD on 10/01/2024 01:10:07
--- NOTE | ~2024-09-30 | CT_ITS ---
CLINICAL HISTORY: FALL CT head without contrast COMPARISON: MR/REG/RI - MRI BRAIN WITHOUT CONT [id number] - 04/12/19 10:30 EDT FINDINGS: Global cerebral volume loss and chronic microvascular ischemic changes. No acute intracranial hemorrhage, extra-axial fluid collection, mass effect, or midline shift. Ventricular system and basilar cisterns are patent. [place]-white matter differentiation is maintained. No gross orbital abnormality. No suspicious or acute bone lesion. Mastoid air cells and paranasal sinuses are predominantly clear. IMPRESSION: 1. No acute intracranial abnormality. 2. Global cerebral volume loss and chronic microvascular ischemic changes. This document has been electronically signed by: True Eddy MD on 10/01/2024 01:05:17
[2024-09-30 19:12] VITALS: BP 127/70; BP 162/94; PULSE 61; PULSE 66; RESP 16; TEMP 36.6; O2SAT 96; BMI 31.0
--- NOTE | 2024-09-30 20:40 | PC.NURSE ---
Patient incontinent of urine. Full linen change. Pericare/hygiene care provided. Visitor at bedside. Awaiting initial ED provider evaluation.
[2024-09-30 22:42] VITALS: BP 155/86; PULSE 55; RESP 18; TEMP 36.8; O2SAT 96
[2024-09-30 22:53] VITALS: BP 155/86; PULSE 55; RESP 18; TEMP 36.8; O2SAT 96
--- NOTE | 2024-10-01 00:02 | ED.FALL ---
HPI - Fall General Chief Complaint: Fall Stated Complaint: mechanical fall w/ head strike Time Seen by Provider: 09/30/24 23:42 Source: patient Mode of arrival: ambulatory Limitations: no limitations History of Present Illness ED Provider: HPI Narrative: Patient's history of essential hypertension Grey cuellar from the correction apparently was walking on the pain med which was uneven tripped and fell landed on his face comes here with a abrasion to the forehead and left side of the nose no loss of consciousness no change in behavior no seizure Related Data Home Medications ?Medication ?Instructions ?Recorded ?Confirmed acetaminophen 500 mg tablet 1,000 mg PO Q8H PRN Pain 07/07/23 02/08/24 aspirin 81 mg tablet,delayed 81 mg PO DAILY 07/07/23 02/08/24 release loratadine 10 mg tablet 10 mg PO DAILY PRN Allergy Symptoms 07/07/23 02/08/24 omeprazole 20 mg capsule,delayed 20 mg PO DAILY@0630 07/07/23 02/08/24 release simvastatin 40 mg tablet 40 mg PO BEDTIME 07/07/23 02/08/24 valsartan 160 1 tab PO DAILY 07/07/23 02/08/24 mg-hydrochlorothiazide 12.5 mg tablet fluoride (sodium) 1.1 % dental 1 appl PO BID 02/08/24 02/08/24 cream (Sodium Fluoride 5000 Plus) guaifenesin 100 mg/5 mL oral 200 mg PO Q6H PRN Cough 02/08/24 02/08/24 liquid (Mallorie-Tussin) tamsulosin 0.4 mg capsule 0.4 mg PO DAILY 02/08/24 02/08/24 amiodarone 200 mg tablet mg PO DAILY 09/08/24 metoprolol succinate 25 mg mg PO DAILY 09/08/24 tablet,extended release 24 hr rosuvastatin 10 mg tablet mg PO 09/08/24 Allergies Allergy/AdvReac Type Severity Reaction Status Date / Time almond [ALMOND] Allergy Unknown UNK Verified 09/30/24 19:17 Seasonal Allergies Allergy Runny Nose Verified 09/30/24 19:17 Review of Systems Review of Systems: Yes all other systems are reviewed and are negative PMFSH Past Medical History Medical History Thrombocytopenia Grey syndrome Non-ischemic cardiomyopathy BPH (benign prostatic hyperplasia) Pneumonia Gastroesophageal reflux disease Essential hypertension Social History Social History Household Members: Caregiver Household Members Other:: correction Housing: Assisted Living Facility Do you presently have visiting nurse or other home services: Yes Patient Tobacco Use Status: Never used Tobacco service: No Physical Exam Vital Signs: Vital Signs: Last Vital Signs Temp 98.7 F 10/01/24 02:15 Pulse 47 L 10/01/24 02:15 Resp 16 10/01/24 02:15 BP 148/79 H 10/01/24 02:15 Pulse Ox 97 10/01/24 02:15 O2 Del Method Room Air 10/01/24 02:15 BMI result Body Mass Index 31.0 Appearance: Alert. Oriented X3. No acute distress. Eyes: PERRLA, No Nystagmus HEENT: Pharynx normal. Oral Mucosa moist superficial abrasion left side of the forehead and left nostril no active bleeding Neck: Normal inspection. Neck supple. CVS: Normal heart rate and rhythm. Pulses normal. Respiratory: No respiratory distress. Equal air entry bilateral, no wheezing/rales/rhonchi Abdomen: Soft and nontender. Bowel sounds are present, no mass palpable, no CVA tenderness Skin: Skin warm and dry. Normal skin color. Normal skin turgor. Extremities: No lower extremity edema. No calf tenderness pelvis stable Neuro: Oriented X 3. No motor deficit. No sensory deficit.No cerebellar signs , cranial nerves II-XII intact Medications Administered Discontinued Medications Generic Name Dose Route Start Last Admin Trade Name Jhonyq PRN Reason Stop Dose Admin Bacitracin 1 appl 10/01/24 01:33 10/01/24 02:09 Bacitracin Oint 0.9 Gm Packet TOPICAL 10/01/24 01:34 1 appl ONCE ONE Administration Protocol Medical Decision Making Medical Decision Making MDM Narrative: patient' status post mechanical fall CT scan of the head and facial does face cleaned and bacitracin ointment applied Independent Interpretation I performed an independent interpretation of an: CT Scan Radiology Impression Discussion of test interpretation with radiology: I have reviewed the radiologist's reading. Radiologist Impression: NAD Discharge Plan Discharge Clinical Impression: Minor closed head injury, Abrasion Patient Disposition: Home, Self-Care Instructions: Head Injury (ED), Abrasion (ED) Additional Instructions: Local care as advised Your CT scan of the face in head is negative for acute Prescriptions: No Action tamsulosin 0.4 mg capsule 0.4 mg PO DAILY fluoride (sodium) [Sodium Fluoride 5000 Plus] 1.1 % cream 1 appl PO BID guaifenesin [Mallorie-Tussin] 100 mg/5 mL Liquid 200 mg PO Q6H PRN (Reason: Cough) valsartan-hydrochlorothiazide 160-12.5 mg tablet 1 tab PO DAILY aspirin 81 mg tablet,delayed release (DR/EC) 81 mg PO DAILY acetaminophen 500 mg tablet 1,000 mg PO Q8H PRN (Reason: Pain) simvastatin 40 mg tablet 40 mg PO BEDTIME omeprazole 20 mg capsule,delayed release(DR/EC) 20 mg PO DAILY@0630 loratadine 10 mg tablet 10 mg PO DAILY PRN (Reason: Allergy Symptoms) metoprolol succinate 25 mg tablet extended release 24 hr PO DAILY amiodarone 200 mg tablet PO DAILY rosuvastatin 10 mg tablet PO Interventions: ED Discharge Assessment Last Done: 10/01/24 02:15 Discharge Date/Time: 10/01/24 02:22 Print Language: Maldivian
[2024-10-01] MEDS: Bacitracin Oint 0.9 GM PACKET 1 APPL TOPICAL (02:09)
[2024-10-01 02:10] VITALS: BP 148/79; PULSE 47; RESP 16; TEMP 37.1; O2SAT 97
[2024-10-01 02:15] VITALS: BP 148/79; PULSE 47; RESP 16; TEMP 37.1; O2SAT 97
== END 2024-10-01 02:22 | disposition home or self-care (01) ==
PROVIDERS: Emergency Provider Internal Medicine
DX: S00.81XA Abrasion of other part of head, initial encounter (principal); S00.03XA Contusion of scalp, initial encounter; R51.9 Headache, unspecified; W01.0XXA Fall on same level from slipping, tripping and stumbling without subsequent striking against object, initial encounter; Y93.9 Activity, unspecified; Y92.9 Unspecified place or not applicable; Y99.8 Other external cause status; Z79.899 Other long term (current) drug therapy
CPT/HCPCS: 70450; 70486; 99284

== ENCOUNTER → 2024-10-01 00:06 | Outpatient (BNV) | payer MEDICARE, MEDICAID, SELFPAY | PROVIDERS: Emergency Provider Internal Medicine; Visit Provider Radiology Diagnostic Radiology | DX: S00.03XA Contusion of scalp, initial encounter (principal); G31.89 Other specified degenerative diseases of nervous system; I67.82 Cerebral ischemia | CPT/HCPCS: 70450; 70486 ==

== ENCOUNTER 2025-03-13 12:43 | Outpatient (AMB) | payer MEDICARE, MEDICAID, SELFPAY ==
--- OUTSIDE RECORDS SUMMARY | 2025-03-13 13:51 | XMS_ITS | Clinical Summary ---
Author Organization [facility] Address [address] [place] [phone] Phone Care Team Providers Care Paper Products Machine Operator Name Role Phone Daksha Ramirez MD Primary Care Provider [phone] Allergies Active Allergy Reactions Criticality Noted Date Comments Columbia 07/01/2021 House Dust Mite 07/01/2021 Lisinopril 12/16/2024 Side effect is cough Mold Extracts 07/01/2021 Encounters Date Type Department Care Team Description 12/16/2024 10:45 AM EDT Consult Orthopedic Surgery - [place] [address] [id number] Rik Arambula DPM Right foot pain (Primary Dx); Arthritis of both feet; Hammertoes of both feet; Contusion of right great toe with damage to nail, initial encounter; Dermatophytosis, nail from Last 3 Months Social History Tobacco Use Types Packs/Day Years Used Date Smoking Tobacco: Never Assessed Sex and Gender Information Value Date Recorded Sex Assigned at Not on file Legal Sex Male 11:40 AM EDT Gender Identity Not on file Sexual Orientation Not on file Last Filed Vital Signs Vital Sign Reading Time Taken Comments Blood Pressure - - Pulse - - Temperature - - Respiratory Rate - - Oxygen Saturation - - Inhaled Oxygen Concentration - - Weight 78.5 kg (173 lb) 12/16/2024 11:17 AM EDT Height 93 cm (3' 0.61 ) 12/16/2024 11:17 AM EDT Body Mass Index 90.73 12/16/2024 11:17 AM EDT Plan of Treatment Upcoming Encounters Date Type Department Care Team (Late st Contact Info) Description 03/21/2025 9:45 AM EDT Office Visit Orthopedic Surgery [facility] [address] [address] Rik Arambula, DPM [address] [address] Health Maintenance Due Date Last Done Comments Hepatitis B Vaccines (1 of 3 - 19+ 3-dose series) 1985 Pneumococcal Vaccine: 50+ Years (1 of 1 - PCV) 2016 Cholesterol Screening (Lipid Panel) 05/14/2024 Colorectal Cancer Screening: Colonoscopy 05/14/2024 HIV Screening 05/14/2024 Hepatitis C Screening 05/14/2024 Medicare Annual Wellness Visit 05/14/2024 Social Influencers of Health Screening 05/14/2024 Depression Screening 07/20/2024 Hypertension/CHF/CAD Annual BMP Blood Test 12/16/2024 04/19/2021 Influenza Vaccine (#1) 2025 , 04/12/2023, 04/10/2022, Additional history exists DTaP,Tdap,and Td Vaccines (4 - Td or Tdap) 07/01/2031 07/01/2021, 05/25/2020, 05/30/2010 Zoster Vaccines Completed 08/25/2021, 06/12/2021 COVID-19 Vaccine Completed 09/19/2024, 03/2024, 05/11/2022, Additional history exists HIB Vaccines Aged Out No longer eligi ble based on patient's age to complete this topic HPV Vaccines Aged Out No longer eligi ble based on patient's age to complete this topic Hepatitis A Vaccines Aged Out No long er eligible based on patient's age to complete this topic IPV Vaccines Aged Out No longer eligi ble based on patient's age to complete this topic MMR Vaccines Aged Out No longer eligi ble based on patient's age to complete this topic Meningococcal ACWY Vaccine Aged Out N o longer eligible based on patient's age to complete this topic Meningococcal B Vaccine Aged Out No l onger eligible based on patient's age to complete this topic RSV Immunization Patients Under 20 months Aged Out No longer eligible based on patient's age to complete this topic Varicella Vaccines Aged Out No longer eligible based on patient's age to complete this topic Procedures Procedure Name Priority Date/Time Associated Diagnosis Comments XR FOOT 3+ VIEWS RIGHT Routine 12/16/2024 11:30 AM EDT Right foot pain from Last 3 Months Results * XR Foot 3+ Views Right (12/16/2024 11:30 AM EDT) Anatomical Region Laterality Modality Lower Extremities, Foot Right Computed Radiography Narrative 12/16/2024 1:39 PM EDT Right foot 3 views nonweightbearing:No fractures or dislocations. Rectus alignment of the digits with contracture at PIP J. Joint space narrowing noted over the tarsometatarsal joint. us Rik Arambula DPM IMG XR PROCEDURES Final Res ult from Last 3 Months Insurance MEDICAID - [place] MEDICARE Care Teams Paper Products Machine Operator Relationship Specialty Start Date End Date Daksha Ramirez MD [address] [place] [address] PCP - General 04/05/24
--- OUTSIDE RECORDS SUMMARY | 2025-03-13 13:51 | XMS_ITS | Clinical Summary ---
Author Organization [facility] Address [address] [place] [phone] Phone Care Team Providers Care Professor Of Rhetoric Name Role Phone Daksha Ramirez MD Primary Care Provider Allergies Active Allergy Reactions Criticality Noted Date Comments [place] 07/01/2021 House Dust Mite 07/01/2021 Mold Extracts 07/01/2021 Medications aspirin 81 mg chewable tablet Take 81 mg by mouth daily. Active valsartan-hydroC HLOROthiazide (DIOVAN-HCT) 160-12.5 mg per tablet Take 1 tablet by mouth daily. Active simvastatin (ZOCOR) 40 MG tablet Take 40 mg by mouth nightly. Active acetaminophen (TACTINAL EXTRA STRENGTH) 500 MG tablet Take 500 mg by mouth daily as needed. Active loratadine (CLARITIN) 10 mg tablet 02/15/2021 Active omeprazole (PRILOSEC) 20 MG capsule 04/01/2021 Active carvedilol (COREG) 6.25 MG tablet 04/01/2021 Active Active Problems No known active problems Immunizations Immunization Administration Dates Next Due Tdap 07/01/2021 Social History Tobacco Use Types Packs/Day Years Used Date Smoking Tobacco: Never Smokeless Tobacco: Never Alcohol Use Standard Drinks/Week Comments No 0 (1 standard drink = 0.6 oz pur e alcohol) Education Answer Date Recorded Are you interested in more education? Not on arianna e 11/14/2022 Are you concerned about learning? Not on file 11/14/2022 No 11/14/2022 No 11/14/2022 Digital Access Answer Date Recorded No 12/13/2022 No 12/13/2022 No 12/13/2022 Reliable internet access at home? Not on file 12/13/2022 Device with a working camera? Not on file Sex and Gender Information Value Date Recorded Sex Assigned at Not on file Legal Sex Male 11:50 AM EST Gender Identity Not on file Sexual Orientation Not on file Last Filed Vital Signs Vital Sign Reading Time Taken Comments Blood Pressure 134/74 07/01/2021 6:58 PM EST Pulse 64 07/01/2021 6:58 PM EST Temperature 36.1 C (97 F) 07/01/2021 6:58 PM EST Respiratory Rate 20 07/01/2021 6:58 PM EST Oxygen Saturation 98% 07/01/2021 6:58 PM EST Inhaled Oxygen Concentration - - Weight 91.2 kg (201 lb) 07/01/2021 12:30 PM EST Height 175.3 cm (5' 9 ) 07/01/2021 12:30 PM EST Body Mass Index 29.68 07/01/2021 12:30 PM EST Plan of Treatment Health Maintenance Due Date Last Done Comments LIPID PANEL 1966 DEPRESSION SCREENING 1978 HEPATITIS C SCREENING 1984 HIV ONE-TIME SCREENING (18-6 5 YEARS) 1984 COLOGUARD 2011 COLONOSCOPY 2011 COLORECTAL CANCER SCREENING 2011 FIT TEST 2011 FOBT 2011 SIGMOIDOSCOPY 2011 VIRTUAL COLONOSCOPY 2011 PNEUMOCOCCAL VACCINES (50+ years) (1 of 1 - PCV) 2016 ZOSTER VACCINES (1 of 2) 2016 CREATININE LEVEL 07/01/2022 07/01/2021, 04/19/2021, 10/28/2017 POTASSIUM LEVEL 07/01/2022 07/01/2021, 04/19/2021, 10/28/2017 COVID-19 VACCINE (3 2023-2 5 season) 2024 08/24/2020, 08/03/2020 Adult Td,Tdap Booster 07/01/2031 07/01/2021 SMOKING STATUS SCREENING (On ce After 26 Yrs) Completed 04/19/2021 HEPATITIS A VACCINES Aged Out No long er eligible based on patient's age to complete this topic HIB VACCINES Aged Out No longer eligi ble based on patient's age to complete this topic MENINGOCOCCAL VACCINES (ACWY) Aged Out No longer eligible based on patient's age to complete this topic MENINGOCOCCAL VACCINES (B) Aged Out N o longer eligible based on patient's age to complete this topic Medical Devices Not on file Procedures Procedure Name Priority Date/Time Associated Diagnosis Comments BASIC METABOLIC PANEL STAT 07/01/2021 1:25 PM EST from Last 3 Months or Most Recently Relevant to Health Maintenance Results * (ABNORMAL) Basic metabolic panel (07/01/2021 1:25 PM EST) SODIUM 140 133 - 146 mmol/L [facility] CHLORIDE 101 96 - 108 mmol/L [facility] POTASSIUM 3.9 3.3 - 5.1 mmol/L [facility] Comment:Specimen slightly he molyzed, result may be falsely elevated. CO2 27 21 - 35 mmol/L [facility] BUN 21(H) 6 - 19 mg/dL [facility] CREATININE 1.00 0.5 - 1.5 mg/dL [facility] GLUCOSE 124(H) 70 - 99 mg/dL [facility] CALCIUM 10.1 8.4 - 10.3 mg/dL [facility] EGFR 89 >59 mL/min/1.7 3m2 [facility] Comment:Estimated glomerular filtration rate calculated using the CKD-EPI refit equation. ANION GAP 16 10 - 20 mmol/L [facility] Blood 07/01/2021 1:25 PM EST 07/01/2021 1:35 PM EST us Johanne Alcazar MD LAB BLOOD ORDERABLES Final R esult [facility] [address] [place] [address] from Last 3 Months or Most Recently Relevant to Health Maintenance Insurance MEDICARE PART A & B [place] HEALTH MEDICARE PART A & B Member Subscriber Plan / Payer (Ef fective 1991-) Name:Brodie Cancino Member ID:[id number] Relation to Subscriber:Self Name:Brodie Cancino Subscriber ID:[id number] Payer ID:[id number] Group ID:Not on file Type:Medicare Address: [facility] [address] [place] [address] [place] & B Member Subscriber Plan / Payer ( fective 1991-) Name:Julita Brodie Member ID:[id number] Relation to Subscriber:Self Name:JulitaBrodie harry Subscriber ID:[id number] Payer ID:[id number] Group ID:Not on file Type:Medicare Address: [facility] [address] [place] [phone] [place] B Member Subscriber Plan / Payer ( fective 1991-Present) Name:JulitaBrodie harry Member ID:[id number] Relation to Subscriber:Self Name:O[place]Brodie harry Subscriber ID:[id number] Payer ID:[id number] Group ID:Not on file Type:Medicare Address: [facility] [address] [place], [place] [address]HEALTH MEDICARE PART A & B Member Subscriber Plan / Payer ( fective 1991-Present) Name:Brodie Cancino Member ID:[id number] Relation to Subscriber:Self Name:Brodie Cancino Subscriber ID:[id number] Payer ID:[id number] Group ID:Not on file Type:Medicare Address: [facility] [address] [place] [phone] [place] B Member Subscriber Plan / Payer (Ef fective 1991-) Name:Brodie Cancino Member ID:[id number] Relation to Subscriber:Self Name:Brodie Cancino Subscriber ID:[id number] Payer ID:[id number] Group ID:Not on file Type:Medicare Address: [facility] [address] [place] [address] [place] A & B Member Subscriber Plan / Payer (Ef fective 1991-) Name:Brodie Cancino Member ID:[id number] Relation to Subscriber:Self Name:Brodie Cancino Subscriber ID:[id number] Payer ID:[id number] Group ID:Not on file Type:Medicare Address: [facility] [address] [place] [address] [place] PART A & B [facility] Care Teams Professor Of Rhetoric Relationship Specialty Start Date End Date Daksha Ramirez MD [address] [place] [id number] PCP - General Internal Medicine 10/28/17 Additional Source Comments The information contained in this document represents components of the legal health record. It is not the complete legal health record.[facility]
== END 2025-03-14 10:41 | disposition home or self-care (01) ==
LOC: HO.HMGAL 12:43
PROVIDERS: Visit Provider Registered Nurse Emergency
DX: J30.89 Other allergic rhinitis (principal)
CPT/HCPCS: 95117; 95165

== ENCOUNTER 2025-04-10 13:05 | Outpatient (AMB) | payer MEDICARE, MEDICAID, SELFPAY ==
--- OUTSIDE RECORDS SUMMARY | 2025-04-10 15:28 | XMS_ITS | Clinical Summary ---
Demographics Address [address] [place] [address] [place] [phone] Home Phone Mobile Phone Preferred Language en Marital Status Single Amish Affiliation Unknown
== END 2025-04-10 13:06 | disposition home or self-care (01) ==
LOC: HO.HMGAL 13:05
PROVIDERS: PCP Internal Medicine; Visit Provider Registered Nurse Emergency
DX: J30.89 Other allergic rhinitis (principal)
CPT/HCPCS: 95117; 95165

== ENCOUNTER 2025-05-08 14:36 | Outpatient (AMB) | payer MEDICARE, MEDICAID, SELFPAY ==
--- OUTSIDE RECORDS SUMMARY | 2025-05-08 18:23 | XMS_ITS | Encounter Summary ---
Author Organization [facility] Address [address] [facility] [address] [place] [address] Phone Care Team Providers Care Clinical Services Director Name Role Phone Daksha Ramirez MD Primary Care Provider Encounter Details Date Type Department Care Team ([facility] st Contact Info) Description 09/21/2017 Ancillary Orders [facility] [address] [place] [address] Nurys Garcia MD [address] [place] [address] [address] Social History Tobacco Use Types Packs/Day Years Used Date Smoking Tobacco: Never Assessed Sex and Gender Information Value Date Recorded Sex Assigned at Not on file Legal Sex Male 11:50 AM EST Gender Identity Not on file Sexual Orientation Not on file documented as of this encounter Plan of Treatment Not on file documented as of this encounter Visit Diagnoses Not on filedocumented in this encounter Care Teams Clinical Services Director Relationship Specialty Start Date End Date Daksha Ramirez MD [address] [place] [address] [address] [place] [address] PCP - General Internal Medicine 10/28/17 documented as of this encounter Additional Source Comments The information contained in this document represents components of the legal health record. It is not the complete legal health record.[facility]
--- OUTSIDE RECORDS SUMMARY | 2025-05-08 18:23 | XMS_ITS | Clinical Summary ---
Author Organization [facility] Address [address] [place] [phone] Phone Care Team Providers Care Section Hand Helper Name Role Phone Daksha Ramirez MD Primary Care Provider Allergies Active Allergy Reactions Criticality Noted Date Comments [place] 07/01/2021 House Dust Mite 07/01/2021 Mold Extracts [...] 10/28/2017 POTASSIUM LEVEL 07/01/2022 07/01/2021, 04/19/2021, 10/28/2017 INFLUENZA VACCINE (#1) 2025 04/23/2020 COVID-19 VACCINE (3 - 2024-2 6 season) 2025 08/24/2020, 08/03/2020 Adult Td,Tdap Booster 07/01/2031 07/01/2021 RSV VACCINE (1 - 1-dose 75+ series) 2041 SMOKING STATUS SCREENING (On ce After 26 [...] EST) SODIUM 140 133 - 146 mmol/L [facility] CHLORIDE 101 96 - 108 mmol/L [facility] POTASSIUM 3.9 3.3 - 5.1 mmol/L [facility] Comment:Specimen slightly he molyzed, result may be falsely elevated. CO2 27 21 - 35 mmol/L [facility] BUN 21(H) 6 - 19 mg/dL [facility] CREATININE 1.00 0.5 - 1.5 mg/dL [facility] GLUCOSE 124(H) 70 - 99 mg/dL [facility] CALCIUM 10.1 8.4 - 10.3 mg/dL [facility] EGFR 89 >59 mL/min/1.7 3m2 [facility] Comment:Estimated glomerular filtration rate calculated using the CKD-EPI refit equation. ANION GAP 16 10 - 20 mmol/L [facility] Blood 07/01/2021 1:25 PM EST 07/01/2021 1:35 PM EST us Johanne Alcazar MD LAB BLOOD ORDERABLES Final R esult [address] [address] from Last 3 Months or Most Recently Relevant to Health Maintenance Insurance MEDICARE PART A & B [place] & [place] PART A & B HEALTH MEDICARE PART A & B HEALTH MEDICARE PART A & B [place] & [place]ALTH MEDICARE [place] & [place] & B [facility] Care Teams Section Hand Helper Relationship Specialty Start Date End Date Daksha Ramirez MD [address] [place] [id number] PCP - General Internal Medicine 10/28/17 Additional Source Comments The information contained in this document represents components of the legal health record. It is not the complete legal health record.[facility]
--- OUTSIDE RECORDS SUMMARY | 2025-05-08 18:24 | XMS_ITS | Encounter Summary ---
Author Organization [facility] Address [address] [facility] [address] [place] [address] Phone Care Team Providers Care Honing Machine Try Out Setter Name Role Phone Daksha Ramirez MD Primary Care Provider Encounter Details Date Type Department Care Team (Late st Contact Info) Description 09/21/2017 Ancillary Orders [facility] [address] [place] [address] Nurys Garcia MD [address] [address] Frequent PVCs Social History Tobacco Use Types Packs/Day Years Used Date Smoking Tobacco: Never Assessed Sex and Gender Information Value Date Recorded Sex Assigned at Not on file Legal Sex Male 11:50 AM EST Gender Identity Not on file Sexual Orientation Not on file documented as of this encounter Plan of Treatment Not on file documented as of this encounter Results * Holter Monitor 24 Hours (09/21/2017 11:53 AM EST) Anatomical Region Laterality Modality Heart Other Narrative 09/21/2017 12:34 PM EST 24-hour monitor: No symptoms reported. Baseline rhythm is sinus with a minimum heart rate of 33 maximum 103 average 58 bpm. There are about 7000 PVCs present, mainly isolated PVCs. There were patient events during sinus rhythm and sinus rhythm with single PVCs. Impression: Abnormal 24-hour monitor. Increased frequency PVCs, about 7000 during 24 hours. Patient events occurred during sinus rhythm and during sinus rhythm with single PVCs. No sustained arrhythmias noted. Nurys Garcia MD CV CARDIAC SERVICES ORDERABLE S Final Result documented in this encounter Visit Diagnoses Diagnosis Frequent PVCs Frequent PVCs documented in this encounter Care Teams Honing Machine Try Out Setter Relationship Specialty Start Date End Date Daksha Ramirez MD [address] [place], [place] [phone] PCP - General Internal Medicine 10/28/17 documented as of this encounter Additional Source Comments The information contained in this document represents components of the legal health record. It is not the complete legal health record.[facility]
== END 2025-05-08 14:36 | disposition home or self-care (01) ==
LOC: HO.HMGAL 14:36
PROVIDERS: PCP Internal Medicine; Visit Provider Registered Nurse Emergency
DX: J30.89 Other allergic rhinitis (principal)
CPT/HCPCS: 95117; 95165

== ENCOUNTER 2025-05-25 08:46 | Emergency (ER) | payer MEDICARE, MEDICAID, SELFPAY ==
--- NOTE | ~2025-05-25 | XR_ITS ---
EXAMINATION: XR CHEST 2 VIEWS HISTORY: chest pain COMPARISON: Comparison is made with the prior examination dated 07/07/2023. FINDINGS: PA and lateral views of the chest are submitted. The lungs are expanded and clear. There is no pleural effusion, pneumothorax, or pulmonary vascular congestion. The heart is normal in size. There is degenerative disc disease of the spine. XR/XR chest 2V IMPRESSION: No acute cardiopulmonary abnormality. Electronically signed by: Tony Lan MD 05/25/2025 10:14 AM [facility]
[2025-05-25 08:49] VITALS: BP 129/77; PULSE 50; O2SAT 98; BMI 31.8
--- NOTE | 2025-05-25 08:49 | ECG_ITS ---
Test Reason : chest pain Blood Pressure : */* mmHG Vent. Rate : 51 BPM Atrial Rate : 51 BPM P-R Int : 194 ms QRS Dur : 96 ms QT Int : 450 ms P-R-T Axes : * 63 99 degrees QTcB Int : 414 ms Sinus bradycardia T wave abnormality, consider inferolateral ischemia Abnormal ECG When compared with ECG of 08-Feb-2024 17:32, Premature ventricular complexes are no longer Present T wave inversion now evident in Lateral leads QT has shortened Referred By: Generic ED Physician Electronically Signed By: Adrian Sofia
[2025-05-25 09:00] VITALS: BP 138/75; PULSE 53; RESP 18; TEMP 36.5; O2SAT 96
[2025-05-25 09:08] LABS: MANUAL DIFF FLAG NO
[2025-05-25 09:14] LABS: Hematocrit 45.5 % (42.0-52.0); Hemoglobin 14.9 g/dl (14.0-18.0); Imm Gran Abs Auto 0.03 X10*3/uL (0.00-0.03); Imm Gran Pct Auto 0.5 % (0.0-0.4); Lymphocytes Absolute Auto 1.0 X10*3/uL (1.2-4.9); Mean Corpuscular HGB Conc 32.7 g/dl (31.0-36.0); Mean Corpuscular Hemoglobin 32.4 pg (27.0-33.0); Mean Corpuscular Volume 98.9 fL (80.0-98.0); NRBC Abs Auto 0.000 X10*3/uL (0.0-0.012); NRBC Pct Auto 0.0 /100WBC (0.0-0.2); Red Blood Count 4.60 X10*6/uL (4.60-5.80); White Blood Count 6.6 X10*3/uL (4.8-10.8)
[2025-05-25 09:25] LABS: Alanine Aminotransferase 18 U/L (0-40); Albumin Level 3.6 g/dL (3.5-5.0); Alkaline Phosphatase 63 U/L (39-117); Anion Gap 10 (12-20); Aspartate Amino Transferase 22 U/L (5-37); Blood Urea Nitrogen 22 mg/dL (9-16); Calcium 8.7 mg/dL (8.4-10.2); Carbon Dioxide 27 mmol/L (22-29); Chloride 111 mmol/L (96-108); Creatinine Clr Calc Pharmacy 97.5; Estimated Glomerular Filt Rate > 60; Magnesium 2.2 mg/dL (1.6-2.6); Potassium 3.9 mmol/L (3.3-5.1); Sodium 144 mmol/L (135-145); Total Protein 6.3 g/dL (6.5-8.0)
[2025-05-25 09:32] LABS: Troponin-I High Sensitivity 4.1 ng/L (<3.5-35.0)
[2025-05-25 09:49] LABS: Platelet Count 95 X10*3/uL (160-400)
--- NOTE | 2025-05-25 09:51 | ED.CHESTPAIN ---
HPI - Chest Pain General Chief Complaint: Chest Pain Stated Complaint: BURNING CP S/P EATING BREAKFAST @[facility] PER EMS Time Seen by Provider: 05/25/25 09:50 Source: family (mother) and other (group account director) Mode of arrival: EMS Limitations: no limitations History of Present Illness ED Provider: HPI narrative: 60-year-old male with a history of developmental delay Grey syndrome, history of GERD presenting from [facility], was eating breakfast earlier today around 7 30, started developing left-sided chest pain which she states was very quickly on and off, but was brought to the ER for evaluation, currently chest pain-free, he states he felt sharp pain in his left shoulder, no coughing, no nausea or vomiting was able to finished breakfast. Related Data Home Medications ?Medication ?Instructions ?Recorded ?Confirmed acetaminophen 500 mg tablet 1,000 mg PO Q8H PRN Pain 07/07/23 02/08/24 aspirin 81 mg tablet,delayed 81 mg PO DAILY 07/07/23 02/08/24 release loratadine 10 mg tablet 10 mg PO DAILY PRN Allergy Symptoms 07/07/23 02/08/24 omeprazole 20 mg capsule,delayed 20 mg PO DAILY@0630 07/07/23 02/08/24 release simvastatin 40 mg tablet 40 mg PO BEDTIME 07/07/23 02/08/24 valsartan 160 1 tab PO DAILY 07/07/23 02/08/24 mg-hydrochlorothiazide 12.5 mg tablet fluoride (sodium) 1.1 % dental 1 appl PO BID 02/08/24 02/08/24 cream (Sodium Fluoride 5000 Plus) guaifenesin 100 mg/5 mL oral 200 mg PO Q6H PRN Cough 02/08/24 02/08/24 liquid (Mallorie-Tussin) tamsulosin 0.4 mg capsule 0.4 mg PO DAILY 02/08/24 02/08/24 amiodarone 200 mg tablet mg PO DAILY 09/08/24 metoprolol succinate 25 mg mg PO DAILY 09/08/24 tablet,extended release 24 hr rosuvastatin 10 mg tablet mg PO 09/08/24 Allergies Allergy/AdvReac Type Severity Reaction Status Date / Time almond (ALMOND) Allergy Unknown UNK Verified 09/30/24 19:17 lisinopril Allergy Unknown Unknown Verified 05/25/25 08:54 Seasonal Allergies Allergy Runny Nose Verified 09/30/24 19:17 Review of Systems Constitutional: Constitutional: Reports as per [facility] Past Medical History Medical History Thrombocytopenia Grey syndrome Non-ischemic cardiomyopathy BPH (benign prostatic hyperplasia) Pneumonia Gastroesophageal reflux disease Essential hypertension Social History Social History Household Members: Caregiver Household Members Other:: [facility] Housing: Assisted Living Facility Do you presently have visiting nurse or other home services: Yes Patient Tobacco Use Status: Never used Tobacco Smoked in Last 30 Days: No Use of substances other than those prescribed or required for medical reasons: No Advance Directives: Yes Advance Directives on File: Yes Advance Directives Date on File: 02/10/24 service: No Physical Exam Exam: Exam: General: ?Facial dysmorphic features typical for Grey syndrome ? speaking full sentences, ? ?CV: RRR, I did not appreciate obvious murmurs, S1-S2 ? ?Resp: ?No wheezing rales rhonchi no stridor moving air well ? Abd: ?Bowel sounds are present, no tenderness no rebound no rigidity ? ?MSK: FROM, strength 5/5 all extremities ? Skin: Warm, dry, intact, ? ?Neuro: ?Alert and oriented to self location, good historian, moving upper and lower extremities symmetrically, Vital Signs: Vital Signs: Last Vital Signs Temp 97.7 F 05/25/25 11:34 Pulse 47 L 05/25/25 11:34 Resp 12 05/25/25 11:34 BP 148/68 H 05/25/25 11:34 Pulse Ox 96 05/25/25 11:34 O2 Del Method Room Air 05/25/25 11:34 BMI result Body Mass Index 31.8 Medical Decision Making Medical Decision Making MDM Narrative: 10:08 AM 05/25/2025 (Dr. Samson Bernard): Patient presented sharp chest pain no left shoulder pain, initial ECG and cardiac enzymes unremarkable, I will expand to 2 hour troponin, we will obtain chest x-ray to evaluate for pneumothorax, mediastinal widening, free air, has a history of Madan syndrome, plain my review no risk factors for aortic dissection and he is not presenting like that, this is not severe pain radiating into the back, he is not significantly hypotensive or hypotensive, overall very well-appearing with group account director and mom at bedside. There was no evidence for food bolus impaction Differential Diagnosis Differential Diagnoses: The differential diagnosis associated with the presentation includes (ACS, pneumothorax, aortic dissection, PE, Boerhaave syndrome) Admission/Observation Consideration of admission/observation: Escalation of care including admission/observation considered Lab Data MDM Lab Attestation statement: I reviewed the patient's lab results. 05/25/25 09:04 05/25/25 09:04 Labs: Lab Results 05/25/25 Range/Units 09:04 WBC 6.6 (4.8-10.8) X10*3/uL RBC 4.60 (4.60-5.80) X10*6/uL Hgb 14.9 (14.0-18.0) g/dl Hct 45.5 (42.0-52.0) % MCV 98.9 H (80.0-98.0) fL MCH 32.4 (27.0-33.0) pg MCHC 32.7 (31.0-36.0) g/dl RDW 14.1 (11.0-16.0) % Plt Count 95 L D (160-400) X10*3/uL MPV 11.5 (9.4-12.4) fL Immature Gran % (Auto) 0.5 H (0.0-0.4) % Neut % (Auto) 73.5 H (45-73) % Lymph % (Auto) 15.2 L (20-40) % [place] % (Auto) 9.7 (2-11) % Eos % (Auto) 0.6 (0-4) % Baso % (Auto) 0.5 (0-2) % Lymph # (Auto) 1.0 L (1.2-4.9) X10*3/uL [place] # (Auto) 0.6 (0.1-1.2) X10*3/uL Eos # (Auto) 0.0 (0.0-0.4) X10*3/uL Baso # (Auto) 0.0 (0.0-0.2) X10*3/uL Abs Immat Gran (auto) 0.03 (0.00-0.03) X10*3/uL Absolute Neuts (auto) 4.8 (2.0-8.3) x10*3/uL Absolute Nucleated RBC 0.000 (0.0-0.012) X10*3/uL Nucleated RBC % (auto) 0.0 (0.0-0.2) /100WBC Sodium 144 (135-145) mmol/L Potassium 3.9 (3.3-5.1) mmol/L Chloride 111 H (96-108) mmol/L Carbon Dioxide 27 (22-29) mmol/L Anion Gap 10 L (12-20) BUN 22 H (9-16) mg/dL Creatinine 0.94 (0.5-1.4) mg/dL Estim Creat Clear Calc 97.5 Estimated GFR > 60 Random Glucose 97 (60-115) mg/dL Calcium 8.7 (8.4-10.2) mg/dL Magnesium 2.2 (1.6-2.6) mg/dL Total Bilirubin 0.5 (0.0-1.0) mg/dL AST 22 (5-37) U/L ALT 18 (0-40) U/L Alkaline Phosphatase 63 (39-117) U/L Troponin I High Sens 4.1 D (<3.5-35.0) ng/L Total Protein 6.3 L (6.5-8.0) g/dL Albumin 3.6 (3.5-5.0) g/dL Independent Interpretation I performed an independent interpretation of an: EKG (Fifty-one likely sinus bradycardia, no dysrhythmia no QTC prolongation no ST-T changes to suspect underlying ACS) and Plain X-Ray (My independent chest xray interpretation: Lungs: Lungs are clear bilaterally without evidence of focal consolidation, pleural effusion, or pneumothorax. Cardiac silhouette is unremarkable, no obvious mediastinal widening, no obvious bony abnormalities such as fractures. Impression: Normal chest X-r) Radiology Impression Discussion of test interpretation with radiology: I have reviewed the radiologist's reading. Independent Historian Clinical information obtained from an independent historian. History obtained from or confirmed by: Parent, EMS and Other (farmworker pullet farm collaborated presentation) Discharge Plan Discharge Clinical Impression: Chest pain, precordial Additional Instructions: Evaluated with either chest pain or left shoulder pain while eating, chest x-ray without any infection or any other lung or heart abnormalities that can be seen on a chest x-ray, cardiac enzymes checked twice they were unremarkable, EKG without changes to suspect a heart attack for example, overall has been doing well and we will be discharged back to [facility], follow up with the PCP any other issues or concerns come back to the ER Prescriptions: No Action tamsulosin 0.4 mg capsule 0.4 mg PO DAILY fluoride (sodium) [Sodium Fluoride 5000 Plus] 1.1 % cream 1 appl PO BID guaifenesin [Mallorie-Tussin] 100 mg/5 mL Liquid 200 mg PO Q6H PRN (Reason: Cough) valsartan-hydrochlorothiazide 160-12.5 mg tablet 1 tab PO DAILY aspirin 81 mg tablet,delayed release (DR/EC) 81 mg PO DAILY acetaminophen 500 mg tablet 1,000 mg PO Q8H PRN (Reason: Pain) simvastatin 40 mg tablet 40 mg PO BEDTIME omeprazole 20 mg capsule,delayed release(DR/EC) 20 mg PO DAILY@0630 loratadine 10 mg tablet 10 mg PO DAILY PRN (Reason: Allergy Symptoms) metoprolol succinate 25 mg tablet extended release 24 hr PO DAILY amiodarone 200 mg tablet PO DAILY rosuvastatin 10 mg tablet PO Referrals: Daksha Ramirez MD [Primary Care Provider, Medical] - 10 days Clinical Impression: Chest pain, precordial Print Language: Tuvaluan
--- OUTSIDE RECORDS SUMMARY | 2025-05-25 10:14 | XMS_ITS | Data Portability ---
Author Organization LEEANN Lindsey s [address] Address [address] [place] [address] Assessment No assessment recorded. Plan of Treatment Reminders Order Date Submit Date Provider Last Modified By Organization Details Last Modified Time Details Appointments None recorded. Lab rapid strep group A, throat 2022 023 [email or web address] [facility], [address] [place] [address], [phone], 3 20:22:20 rapid flu (A+B) 2022 023 [email or web address] [facility], [address] [place] [address], [phone], 3 20:22:20 Referral None recorded. Procedures None recorded. Surgeries None recorded. Imaging None recorded. Medication Orders amoxicillin 875 mg-potassiu m clavulanate 125 mg tablet 2022 023 [facility], [address] [place] [address], [address], 3 12:00:14 Patient TargetsNo targets recorded. Patient Instructions Encounter Date Encounter Id Patient Instructions Last Modified By Organization Details Last Modified Time 08/25/2022 [id number] Based on your Presentation, Exam, and Lab [...] 6. Severe Headache Thank you for using [facility] today, please feel free to contact our office if you have any questions or concerns. [email or web address] Not available 08/25/2022 20:22:19 Reason for Referral None Reported. Results Created Date Observation Date Name Description Value Unit Range Abnormal Flag Note LastModifiedBy Organization Detail LastModifiedTime 08/25/1908/25/2022 rapid flu (A+B) Unknown Analyte Normal = Negati ve Not Available [facility] [address] [place] [address], [place], [phone], 08/25/2022 18:34:25 08/25/19 23 08/25/2022 rapid flu (A+B) Unknown Analyte Normal = Negati ve Not Available [address] [place] [address], [phone], 08/25/2022 18:34:25 08/25/19 23 08/25/2022 rapid flu (A+B) Unknown Analyte negati ve Not Available [address] [place] [address], [phone], 08/25/2022 18:34:25 08/25/19 23 08/25/2022 rapid flu (A+B) Unknown Analyte negati ve Not Available [address] [place] [address], [phone], 08/25/2022 18:34:25 08/25/19 23 08/25/2022 rapid strep group A, throa t Unknown Analyte Normal = Negati ve Not Available [address] [place] [address], [phone], 08/25/2022 18:30:52 08/25/1908/25/2022 rapid strep group A, throa t Unknown Analyte negati ve Not Available [address] [place] [address], [phone], 08/25/2022 18:30:52 Result Notes None recorded. Problems Name Problem SNOMED Code Status Onset Date Resolution Date Notes Provider Name and Address Organization Details Recorded Time Acid reflux 130554490 Active 2022 IRIS COUVERTIE R null, [place] - [facility] 3 18:48:20 Essential hypertension 44783314 Active 2022 IRIS COUVERTIE R null, PA - [facility] 3 18:48:35 Hyperlipidemia 57812343 Active 2022 IRIS COUVERTIE R null, PA - [facility] 18:49:44 Problem Notes None recorded. Medical Equipment [...] in Arterial blood by Pulse oximetry Systolic And Diastolic Provider Name and Address Organization Details Last Updated DateTime 3 175.26 cm 23.6 kg/m2 67046.7 8 g 97.8 [degF] 20 /min 78 /min 97 % 97 % 128/72 mm[Hg] KRISTEN Baez PA - [facility] 18:38:44 Social History Question Answer Notes LastModified by Organizat ion Details LastModified Time Tobacco Smoking Status Never Smoker KRISTEN muhammad [place] - [facility] 08/25/2022 18:33:51 What Is Your Water Source? City Information not available 08/25/2022 What Is Your Heat Source? Gas Information not available 08/25/2022 Have You Had Direct Contact, Or Contact During Intimacy, With Monkeypox Rash, Scabs, Or Body Fluids From A Person With Monkeypox? No Information not available 08/25/2022 Have You Recently Traveled Abroad? No Information not available 08/25/2022 Sex: Unknown Functional Status Question Answer Note LastModified by Organizat ion Details LastModified Time Do you use any illicit or recreational drugs? No Information not available 08/25/2022 Do you or have you ever used any other forms of tobacco or nicotine? No Information not available 08/25/2022 What is your level of alcohol consumption? None Information not available 08/25/2022 Mental Status None recorded. Family History Relationship [...] Diagnosis SNOMED-CT Code Diagnosis ICD10 Code Diagnosis IMO Codes Diagnosis Note [id number] [facility] [address] [address] 04/20/2016 13:53:50 04/20/2016 14:37:05 [id number] [facility] [address] [address] 04/20/2016 14:00:05 04/20/2016 14:37:12 [id number] LEEANN MONSON [facility] [address] [place] [address] 08/25/2022 16:32:36 08/25/2022 20:25:06 Uvulitis 686700594 K12.2 Health Concerns Section Related Observation LastModified by Organization Detai ls LastModified Time None Recorded Concern Status LastModified by Organization Details LastModified Time None Recorded Advance Directives Directive None Recorded Payers Insurance Date Sequence Insurance Name Policy Number Policy Glez Covered Member ID Glez Member ID Guarantor Name 08/30/2022 2 [place] B-[place]: [employer] Brodie Cancino [id number] Brodie Cancino 10/23/2022 1 [place] [facility] Brodie Cancino [id number] Brodie Cancino Notes Date Note Type Note Provider Name and Address Organization Details Recorded Time 08/25/2022 text/html Sore throatRepor tricia by PatientSore ThroatFor associated symptoms, patient reportssore throatandnauseabut reportsno cough,no sputum production,no shortness of breath,no wheezing,no sinus pain,no vomiting, andno hoarseness. For source of patient information, patient reportsinformation obtained from patientandpatient arrived at urgent care ambulatory. For location, patient reportsthroat. For severity, patient reportsmoderate. For quality, patient reportshurts to swallow. For onset/timing, patient reports2 days.Sudden onset today- Throat sore. Periods of nausea. No fever. No runny nose. Feels swollen in the throat. No strep exposures No OTC medication taken. LEEANN MONSON [address] [place], [address], [place] - [facility] 08/25/2022 20:25:07
--- OUTSIDE RECORDS SUMMARY | 2025-05-25 10:14 | XMS_ITS | Clinical Summary ---
Author Organization [facility] Address [address] [place] [address] Phone Care Team Providers Care Health Physicist Name Role Phone Daksha Ramirez MD Primary Care Provider [phone] Allergies Active Allergy Reactions Criticality Noted Date Comments [place] 07/01/2021 House Dust Mite 07/01/2021 Lisinopril 12/16/2024 Side effect is cough Mold Extracts 07/01/2021 Medications No known medications Encounters Date Type Department Care Team Description 03/21/2025 9:45 AM EDT Office Visit [facility] [place] [address] [place] [phone] Rik Arambula, ASTON Right foot pain (Primary Dx); Arthritis of both feet; Hammertoes of both feet; Contusion of right great toe with damage to nail, subsequent encounter; Dermatophytosis, nail from Last 3 Months [...] Care Team (Late st Contact Info) Description 06/20/2025 10:15 AM EST Office Visit [facility] - [place] [address] [facility] [address] [facility] [address] [place] [address] Rik Arambula, DPM [address] [facility] [address] [place] [address] Health Maintenance Due Date Last Done Comments Colorectal Cancer Screening: Colonoscopy 1966 Hepatitis B Vaccines (1 of 3 - 19+ 3-dose series) 1985 Pneumococcal Vaccine: 50+ Years (1 of 1 - PCV) 2016 RSV Immunization Adult Patients (1 - Risk 50-74 years 1-dose series) 2016 Cholesterol Screening (Lipid Panel) 05/14/2024 HIV Screening 05/14/2024 Hepatitis C Screening [...] on patient's age to complete this topic Insurance MEDICA[place] - [place] MEDICARE Care Teams Health Physicist Relationship Specialty Start Date End Date Daksha Ramirez MD [address] [place] [address] PCP - General 04/05/24
--- OUTSIDE RECORDS SUMMARY | 2025-05-25 10:14 | XMS_ITS | Data Portability ---
Author Organization [place] - [facility], [facility]ergy Address [address] [place] [address] Care Team Providers Care Superintendent Sales Name Role Phone FELIPE OWENS Primary Care Provider Assessment Encounter Date Assessment Date Assessment LastModified by Organization Details LastModified Time 04/12/2025 04/12/2025 Ears were meticulously cleaned bilaterally today with fine pics, curettes and/or suction. Patient is encouraged to avoid Q-tips in their ears relative to packing the wax in tighter. They may use the corner of their bath towel to gently clean the external ears as needed. I also encouraged the use of either mineral oil, baby oil, or sweet oil weekly. I provided instructions which include leaving the affected ear up towards the juan to let the oil soak for 2 to 3 minutes, followed by drainage by turning the head contralaterally . This was recommended for both sides. I provided a second option which was diluted 50/50 peroxide in water to use weekly. The patient follow-up as needed for cerumen removal with PA team. I was able to fully remove under the microscope today specifically the left ear. I will have him start diluted peroxide for 2 weeks and connect his ear PE tube for further cleanout. Otherwise his ear appears normal with normal TMs bilateral. [email or web address] Not available 04/12/2025 14:37:27 Plan of Treatment Reminders Order Date Submit Date Provider Last Modified By Organization Details Last Modified Time Details Appointments Establish ed 15 2024 11:30A M RISSA OTERO PA-C Not available Not available Not available Lab None recorded. Referral None recorded. Procedures None recorded. Surgeries None recorded. Imaging None recorded. Medication Orders None recorded. Patient TargetsNo targets recorded. Patient InstructionsNo instructions recorded. Reason for Referral None Reported. Problems Name Problem SNOMED Code Status Onset Date Resolution Date Notes Provider Name and Address Organization Details Recorded Time Impacted cerumen of bilateral ears 36699741746 98281 Active 2023 Impacted cerumen, bilateral ; Note: Date Diagnosed : 08/14/2023 3:14 PM (H61.23) Donald Maldonado, DO [address] [facility],[place] [address], [place], [address] , [facility] 12:30:45 Impacted cerumen in left ear 69524556776 09104 Active 2023 Impacted cerumen, left ear; Note: Date Diagnosed : 09/22/2023 10:09 AM (H61.22) Not Available [facility] 03:05:55 Problem Notes None recorded. Procedures Surgical History Date Name Laterality Status Provider Name and Address Organization Details Recorded Time Cerumen removal with microscope completed Donald Maldonado, DO [address] [facility],[place] [address], [place], [address], [facility] 04/12/2025 14:37:08 Imaging Results None recorded. Procedure Notes None recorded. Medical Equipment None Reported. Allergies Allergen ID Allergen Name Allergen Category Reaction Reaction Severity Criticality Documentation Date Start Date Code Code System Note Provider Name and Address Organization Details Recorded Time 462819 almond oil food,medi cation other Not available Not available 02/19/2024 73737 38 RxNorm React ion: Unkno wn; Not Available [facility] 4 00:38:05 430922 lisinopri l medicatio n other Not available Not available 02/19/2024 37396 RxNorm React ion: Unkno wn; Not Available [facility] 4 00:38:05 Medications Name Sig Start Date Stop Date Status Note LastModified by Organization Details LastModified Time amoxicill in 500 mg capsule active Not Available Not Available Not Available amiodaron e 200 mg tablet active Not Available Not Available Not Available Debrox 6.5 % ear drops Instill 4 drop into left ear twice a day 2023 active Medicati on ID: [id number] D uration Value: 30 Brand Name: Ginger S end Method: E-Prescr ibed Sub s Allowed: subs OK Medic ationGen ericName : Ginger Not Available Not Available Not Available bacitraci n 500 unit/gram topical ointment 04/12 completed Not Available Not Available Not Available valsartan 80 mg tablet active Not Available Not Available Not Available aspirin 81 mg tablet,de layed release active Not Available Not Available Not Available acetamino phen 500 mg tablet 04/12 completed Not Available Not Available Not Available famotidin e 20 mg tablet 04/12 completed Not Available Not Available Not Available tamsulosi n 0.4 mg capsule active Not Available Not Available Not Available mineral oil instill 2 drops in both ears once weekly 2024 active Not Available Not Available Not Avai lable omeprazol e 20 mg capsule,d elayed release active Not Available Not Available Not Available mupirocin 2 % topical ointment 04/12 completed Not Available Not Available Not Available metoprolo l succinate ER 25 mg tablet,ex tended release 24 hr active Not Available Not Available Not Available albuterol sulfate HFA 90 mcg/actua tion aerosol inhaler 04/12 completed Not Available Not Available Not Available loratadin e 10 mg tablet active Not Available Not Available Not Available rosuvasta tin 10 mg tablet active Not Available Not Available Not Available Vitals Date Recorded Body height Body mass index (BMI) Body weight Provider Name and Address Organization Details Last Updated DateTime 04/12/2025 172.72 cm 27.8 kg/m2 42348.4 [facility] 04/12/2025 14:07:29 Social History None recorded. Functional Status None recorded. Mental Status None recorded. Family History Nothing Reported. Medical History No medical history recorded. Past Encounters Encounter ID Performer Location Encounter Start Date Encounter Closed Date Diagnosis/Indication Diagnosis SNOMED-CT Code Diagnosis ICD10 Code Diagnosis IMO Codes Diagnosis Note [id number] Donald Maldonado, DO [facility] [address] [address] 04/12/2025 13:55:16 04/12/2025 14:39:44 Impacted cerumen of bilateral ears 0864247624 432714 H61.23 425047 Health Concerns Section Related Observation LastModified by Organization Detai ls LastModified Time None Recorded Concern Status LastModified by Organization Details LastModified Time None Recorded Advance Directives Directive None Recorded Payers Insurance Date Sequence Insurance Name Policy Number Policy Glez Covered Member ID Glez Member ID Guarantor Name 04/29/2025 1 [place] B-[place]: [employer] Brodie Cancino [id number] Brodie Cancino 04/29/2025 2 [place] [facility] Brodie Cancino [id number] Brodie Cancino Notes Date Note Type Note Provider Name and Address Organization Details Recorded Time 04/12/2025 text/html ROS as noted in the HPI The patient presents today for cerumen removal. They Endorse aural fullness. They Endorse otaliga AU. They Endorse hearing loss AU. They deny symptoms of vertigo, autophony, and tinnitus. Prior Audiogram: None Donald Maldonado, DO [address] [facility],[place] [address], [place], [address], [facility] - [facility] 04/12/2025 14:37:49
--- OUTSIDE RECORDS SUMMARY | 2025-05-25 10:14 | XMS_ITS | Encounter Summary ---
Author Organization [facility] Address [address] [facility] [address] [place] [address] Phone Care Team Providers Care Ell Teacher Name Role Phone Daksha Ramirez MD Primary Care Provider Encounter Details Date Type Department Care Team ([facility] st Contact Info) Description 09/21/2017 Ancillary Orders [facility] [address] [place] [address] Nurys Garcia MD [address] [address] Social History Tobacco Use Types Packs/Day Years [...] on filedocumented in this encounter Care Teams Ell Teacher Relationship Specialty Start Date End Date Daksha Ramirez MD [address] [place] [address] [address] [place] [address] PCP - General Internal Medicine 10/28/17 documented as of this encounter Additional Source Comments The information contained in this document represents components of the legal health record. It is not the complete legal health record.[facility]
--- OUTSIDE RECORDS SUMMARY | 2025-05-25 10:14 | XMS_ITS | Continuity of Care Document ---
Author Organization [place] - [facility], [facility] Address [address] [place] [address] Care Team Providers Care Wet Roaster Name Role Phone FELIPE OWENS Primary Care [...] Recorded Time Impacted cerumen of bilateral ears 73224297646 83578 Active 2023 Impacted cerumen, bilateral ; Note: Date Diagnosed : 08/14/2023 3:14 PM (H61.23) Donald Maldonado, DO [address] [facility],[address], [address] , [facility] 12:30:45 Impacted cerumen in left ear 42887920325 43581 Active 2023 Impacted cerumen, left ear; Note: Date Diagnosed : 09/22/2023 10:09 AM (H61.22) Not Available [facility] 03:05:55 Problem Notes None recorded. Procedures Surgical History Date Name Laterality Status Provider Name and Address Organization Details Recorded Time Cerumen removal with microscope completed Donald Maldonado, DO [address] [facility],[place] [address], [place], [address], [facility] 04/12/2025 14:37:08 Imaging Results None recorded. Procedure Notes None recorded. Medical Equipment None Reported. Allergies Allergen ID Allergen Name Allergen Category Reaction Reaction Severity Criticality Documentation Date Start Date Code Code System Note Provider Name and Address Organization Details Recorded Time 126050 almond oil food,medi cation other Not available Not available 02/19/2024 91309 38 RxNorm React ion: Unkno wn; Not Available [facility] 4 00:38:05 088671 lisinopri l medicatio n other Not available Not available 02/19/2024 01305 RxNorm React ion: Unkno wn; Not Available [facility] 4 00:38:05 Medications Name Sig Start Date Stop Date Status Note LastModified by Organization Details LastModified Time amoxicill in 500 mg capsule active Not Available Not Available Not Available amiodaron e 200 mg tablet active Not Available Not Available Not Available Debrox 6.5 % ear drops Instill 4 drop into left ear twice a day 2023 active Medicati on ID: [id number] D uration Value: 30 Brand Name: Ginger [...] Updated DateTime 04/12/2025 172.72 cm 27.8 kg/m2 49251.4 g [facility] 04/12/2025 14:07:29 Social History None recorded. Functional Status None recorded. Mental Status None recorded. Family History Nothing Reported. Medical History No medical history recorded. Past Encounters Encounter ID Performer Location Encounter Start Date Encounter Closed Date Diagnosis/Indication Diagnosis SNOMED-CT Code Diagnosis ICD10 Code Diagnosis IMO Codes Diagnosis Note [id number] Donald Maldonado DO [facility] [address] [address] 04/12/2025 13:55:16 04/12/2025 14:39:44 Impacted cerumen of bilateral ears 0314332522 701073 H61.23 633172 Health Concerns Section Related Observation LastModified by Organization Detai ls LastModified Time None Recorded Concern Status LastModified by Organization Details LastModified Time None Recorded Payers Encounter Date Sequence Insurance Name Policy Number Policy Glez Covered Member ID Glez Member ID Guarantor Name 04/12/2025 1 [place] B-[place] [employer] Brodie Cancino [id number] Brodie Cancino 04/12/2025 2 [place]: [facility] Brodie Cancino [id number] Germandelmis Cancino Notes Date Note Type Note Provider Name and Address Organization Details Recorded Time 04/12/2025 text/html ROS as noted in the HPI The patient presents today for cerumen removal. They Endorse aural fullness. They Endorse otaliga AU. They Endorse hearing loss AU. They deny symptoms of vertigo, autophony, and tinnitus. Prior Audiogram: None Donald Maldonado, DO [address] [facility],[place] [address], [place], [address], [facility] - [facility] 04/12/2025 14:37:49
--- OUTSIDE RECORDS SUMMARY | 2025-05-25 10:14 | XMS_ITS | Encounter Summary ---
Author Organization [facility] Address [address] [facility] [address] [place] [address] Phone Care Team Providers Care Health Assessment And Treatment Teacher Name Role Phone Daksha Ramirez MD Primary Care Provider Encounter Details Date Type Department Care Team (Late st Contact Info) Description 09/21/2017 Ancillary Orders [facility] [address] [place] [address] Nurys Garcia MD [address] [address] Frequent PVCs Social History Tobacco Use Types [...] PVCs documented in this encounter Care Teams Health Assessment And Treatment Teacher Relationship Specialty Start Date End Date Daksha Ramirez MD [address] [place], [place] [phone] PCP - General Internal Medicine 10/28/17 documented as of this encounter Additional Source Comments The information contained in this document represents components of the legal health record. It is not the complete legal health record.[facility]
--- OUTSIDE RECORDS SUMMARY | 2025-05-25 10:14 | XMS_ITS | Clinical Summary ---
Author Organization [facility] Address [address] [place] [address] Phone Care Team Providers Care Deblocker Name Role Phone Daksha Ramirez MD Primary Care Provider Allergies Active Allergy Reactions Criticality Noted Date Comments [place] 07/01/2021 House Dust Mite 07/01/2021 Mold Extracts [...] Date/Time Associated Diagnosis Comments BASIC METABOLIC PANEL (BMP) STAT 07/01/2021 1:25 PM EST from Last 3 Months or Most Recently Relevant to Health Maintenance Results * (ABNORMAL) Basic metabolic panel (07/01/2021 1:25 PM EST) SODIUM 140 133 - 146 mmol/L [facility] CHLORIDE 101 96 - 108 mmol/L [facility] POTASSIUM 3.9 3.3 - 5.1 mmol/L [facility] Comment:Specimen slightly he molyzed, result may be falsely elevated. CO2 27 21 - 35 mmol/L [facility] BUN 21(H) 6 - 19 mg/dL [facility] CREATININE 1.00 0.5 - 1.5 mg/dL [facility] GLUCOSE 124(H) 70 - 99 mg/dL [facility] CALCIUM 10.1 8.4 - 10.3 mg/dL [facility] EGFR 89 >59 mL/min/1.7 3m2 [facility] Comment:Estimated glomerular filtration rate calculated using the CKD-EPI refit equation. ANION GAP 16 10 - 20 mmol/L [facility] Blood 07/01/2021 1:25 PM EST 07/01/2021 1:35 PM EST us Johanne Alcazar MD LAB BLOOD BKR ORDERABLES Fin al Result [facility] [address] [place] [address] from Last 3 Months or Most Recently [...] B [place] A & [facility] Care Teams Deblocker Relationship Specialty Start Date End Date Daksha Ramirez MD [address] [place] [address] PCP - General Internal Medicine 10/28/17 Additional Source Comments The information contained in this document represents components of the legal health record. It is not the complete legal health record.[facility]
[2025-05-25 11:34] VITALS: BP 148/68; PULSE 47; RESP 12; TEMP 36.5; O2SAT 96
--- NOTE | 2025-05-25 11:46 | PC.NURSE ---
pt states that his pain has gone away
[2025-05-25 12:12] LABS: Troponin-I High Sensitivity 2.8 ng/L (<3.5-35.0)
[2025-05-25 12:34] VITALS: BP 130/90; PULSE 50; RESP 12; TEMP 36.6; O2SAT 96
== END 2025-05-25 12:35 | disposition home or self-care (01) ==
PROVIDERS: Emergency Provider Emergency Medicine; PCP Internal Medicine
DX: R07.2 Precordial pain (principal); R07.9 Chest pain, unspecified; M25.512 Pain in left shoulder; Q93.82 Williams syndrome; K21.9 Gastro-esophageal reflux disease without esophagitis; I10 Essential (primary) hypertension; Z79.899 Other long term (current) drug therapy
CPT/HCPCS: 36415; 71046; 80053; 83735; 84484; 85025; 93005; 99284; 99285

== ENCOUNTER → 2025-05-25 08:49 | Outpatient (BNV) | payer MEDICARE, MEDICAID, SELFPAY | PROVIDERS: Emergency Provider Emergency Medicine; PCP Internal Medicine; Visit Provider Internal Medicine Cardiovascular Disease | DX: R00.1 Bradycardia, unspecified (principal) | CPT/HCPCS: 93010 ==

== ENCOUNTER → 2025-05-25 10:01 | Outpatient (BNV) | payer MEDICARE, MEDICAID, SELFPAY | PROVIDERS: Emergency Provider Emergency Medicine; PCP Internal Medicine; Visit Provider Radiology Diagnostic Radiology | DX: R07.9 Chest pain, unspecified (principal) | CPT/HCPCS: 71046 ==

== ENCOUNTER 2025-06-07 13:06 | Outpatient (AMB) | payer MEDICARE, MEDICAID, SELFPAY ==
--- OUTSIDE RECORDS SUMMARY | 2025-06-08 01:01 | XMS_ITS | Clinical Summary ---
Author Organization [facility] Address [address] [place] [address] Phone Care Team Providers Care Leather Products Supervisor Name Role Phone Daksha Ramirez MD Primary Care Provider Allergies Active Allergy Reactions Criticality Noted Date Comments [place] 07/01/2021 House Dust Mite 07/01/2021 Mold Extracts [...] EST) SODIUM 140 133 - 146 mmol/L [facility] CHLORIDE 101 96 - 108 mmol/L [facility] POTASSIUM 3.9 3.3 - 5.1 mmol/L [facility] Comment:Specimen slightly he molyzed, result may be falsely elevated. CO2 27 21 - 35 mmol/L [facility] BUN 21(H) 6 - 19 mg/dL [facility] CREATININE 1.00 0.5 - 1.5 mg/dL [facility] GLUCOSE 124(H) 70 - 99 mg/dL [facility] CALCIUM 10.1 8.4 - 10.3 mg/dL [facility] EGFR 89 >59 mL/min/1.7 3m2 [facility] Comment:Estimated glomerular filtration rate calculated using the CKD-EPI refit equation. ANION GAP 16 10 - 20 mmol/L [facility] Blood 07/01/2021 1:25 PM EST 07/01/2021 1:35 PM EST us Johanne Alcazar MD LAB BLOOD BKR ORDERABLES Fin al Result [facility] [address] [place] [address] from Last 3 Months or Most Recently [...] B [place] [facility] [facility] Care Teams Leather Products Supervisor Relationship Specialty Start Date End Date Daksha Ramirez MD [address] [place] [address] PCP - General Internal Medicine 10/28/17 Additional Source Comments The information contained in this document represents components of the legal health record. It is not the complete legal health record.[facility]
--- OUTSIDE RECORDS SUMMARY | 2025-06-08 01:01 | XMS_ITS | Data Portability ---
Author Organization [place] - [facility], Allergy Address [address] [place] [address] Care Team Providers Care Help Desk Supervisor Name Role Phone FELIPE OWENS Primary Care Provider [phone] Assessment Encounter Date Assessment Date Assessment LastModified [...] Recorded Time Impacted cerumen of bilateral ears [id number] 14183 Active 2023 Impacted cerumen, bilateral ; Note: Date Diagnosed : 08/14/2023 3:14 PM (H61.23) Donald Maldonado, DO [address] [facility],[place] [address], [place], [address] , [facility] 12:30:45 Impacted cerumen in left ear 13754545069 18652 Active 2023 Impacted cerumen, left ear; Note: Date Diagnosed : 09/22/2023 10:09 AM (H61.22) Not Available [facility] 03:05:55 Problem Notes None recorded. Procedures Surgical History Date Name Laterality Status Provider Name and Address Organization Details Recorded Time Cerumen removal with microscope completed Donald Maldonado, DO [address] [facility],[place] [address], [place], [address], [facility] 04/12/2025 14:37:08 Imaging Results None recorded. Procedure Notes None recorded. Medical Equipment None Reported. Allergies Allergen ID Allergen Name Allergen Category Reaction Reaction Severity Criticality Documentation Date Start Date Code Code System Note Provider Name and Address Organization Details Recorded Time 191131 almond oil food,medi cation other Not available Not available 02/19/2024 02829 38 RxNorm React ion: Unkno wn; Not Available [facility] 4 00:38:05 621828 lisinopri l medicatio n other Not available Not available 02/19/2024 30187 RxNorm React ion: Unkno wn; Not Available [facility] 4 00:38:05 Medications Name Sig Start Date Stop Date Status Note LastModified by Organization Details LastModified Time amoxicill in 500 mg capsule active Not Available Not Available Not Available amiodaron e 200 mg tablet active Not Available Not Available Not Available Debrox 6.5 % ear drops Instill 4 drop into left ear twice a day 2023 active Medicati on ID: [id number] D uration Value: 30 Brand Name: Ginger [...] Updated DateTime 04/12/2025 172.72 cm 27.8 kg/m2 58170.4 g [facility] 04/12/2025 14:07:29 Social History None recorded. Functional Status None recorded. Mental Status None recorded. Family History Nothing Reported. Medical History No medical history recorded. Past Encounters Encounter ID Performer Location Encounter Start Date Encounter Closed Date Diagnosis/Indication Diagnosis SNOMED-CT Code Diagnosis ICD10 Code Diagnosis IMO Codes Diagnosis Note [id number] Donald Maldonado, DO [facility] [address] [address] 04/12/2025 13:55:16 04/12/2025 14:39:44 Impacted cerumen of bilateral ears 1284917274 900472 H61.23 254619 Health Concerns Section Related Observation LastModified by Organization Detai ls LastModified Time None Recorded Concern Status LastModified by Organization Details LastModified Time None Recorded Advance Directives Directive None Recorded Payers Insurance Date Sequence Insurance Name Policy Number Policy Glez Covered Member ID Glez Member ID Guarantor Name 04/29/2025 1 [place] [employer] Brodie Cancino [id number] Brodie Cancino 04/29/2025 2 [place] [facility] Brodie Cancino [id number] Brodie Cancino Notes Date Note Type Note Provider Name and Address Organization Details Recorded Time 04/12/2025 text/html ROS as noted in the HPI The patient presents today for cerumen removal. They Endorse aural fullness. They Endorse otaliga AU. They Endorse hearing loss AU. They deny symptoms of vertigo, autophony, and tinnitus. Prior Audiogram: None Donald Maldonado, DO [address] [facility],[place] [address], [place], [address], [facility] - [facility] 04/12/2025 14:37:49
--- OUTSIDE RECORDS SUMMARY | 2025-06-08 01:01 | XMS_ITS | Data Portability ---
Author Organization LEEANN Lindsey [facility] [address] [address] Address [address] [place] [address] Assessment No assessment recorded. Plan of Treatment Reminders Order Date Submit Date Provider Last Modified By Organization Details Last Modified Time Details Appointments None recorded. Lab rapid strep group A, throat 2022 023 [facility], [address] [place] [address], [phone], 3 20:22:20 rapid flu (A+B) 2022 023 [email or web address] [facility], [address] [place] [address], [phone], 3 20:22:20 Referral None recorded. Procedures None recorded. Surgeries None recorded. Imaging None recorded. Medication Orders amoxicillin 875 mg-potassiu m clavulanate 125 mg tablet 2022 023 [facility], [address] [place] [address], [address], 3 12:00:14 Patient TargetsNo targets recorded. Patient Instructions Encounter Date Encounter Id Patient Instructions Last Modified By Organization Details Last Modified Time 08/25/2022 [id number] Based on your Presentation, Exam, and Lab [...] 6. Severe Headache Thank you for using [facility] today, please feel free to contact our office if you have any questions or concerns. Not available 08/25/2022 20:22:19 Reason for Referral None Reported. Results Created Date Observation Date Name Description Value Unit Range Abnormal Flag Note LastModifiedBy Organization Detail LastModifiedTime 08/25/1908/25/2022 rapid flu (A+B) Unknown Analyte Normal = Negati ve Not Available [facility] [address] [place] [address], [place], [address], 08/25/2022 18:34:25 08/25/19 23 08/25/2022 rapid flu (A+B) Unknown Analyte Normal = Negati ve Not Available [address] [place] [address], [phone], 08/25/2022 18:34:25 08/25/19 23 08/25/2022 rapid flu (A+B) Unknown Analyte negati ve Not Available [address] [place] [address], [phone], 08/25/2022 18:34:25 08/25/19 23 08/25/2022 rapid flu (A+B) Unknown Analyte negati ve Not Available [address] [place] [address], [address], 08/25/2022 18:34:25 08/25/19 23 08/25/2022 rapid strep group A, throa t Unknown Analyte Normal = Negati ve Not Available [address] [place] [address], [address], 08/25/2022 18:30:52 08/25/1908/25/2022 rapid strep group A, throa t Unknown Analyte negati ve Not Available [address] [place] [address], [phone], 08/25/2022 18:30:52 Result Notes None recorded. Problems Name Problem SNOMED Code Status Onset Date Resolution Date Notes Provider Name and Address Organization Details Recorded Time Acid reflux 123848397 Active 2022 IRIS COUVERTIE R null, [place] - [facility] 3 18:48:20 Essential hypertension 69117773 Active 2022 IRIS COUVERTIE R null, [place] - [facility] 3 18:48:35 Hyperlipidemia 14868649 Active 2022 IRIS COUVERTIE R null, PA [...] Updated DateTime 3 175.26 cm 23.6 kg/m2 39232.7 8 g 97.8 [degF] 20 /min 78 [...] ICD10 Code Diagnosis IMO Codes Diagnosis Note [id number] [facility] [address] [address] 04/20/2016 13:53:50 04/20/2016 14:37:05 [id number] [facility] [address] [address] 04/20/2016 14:00:05 04/20/2016 14:37:12 [id number] LEEANN MONSON [facility] [address] [place] [address] 08/25/2022 16:32:36 08/25/2022 20:25:06 Uvulitis 507462597 K12.2 Health Concerns Section Related Observation LastModified by Organization Detai ls LastModified Time None Recorded Concern Status LastModified by Organization Details LastModified Time None Recorded Advance Directives Directive None Recorded Payers Insurance Date Sequence Insurance Name Policy Number Policy Glez Covered Member ID Glez Member ID Guarantor Name 08/30/2022 2 [place] [employer] Brodie Cancino [id number] Brodie Cancino 10/23/2022 1 [place] [facility] Brodie Cancino [id number] Brodie Cancino Notes Date Note Type Note [...] taken. LEEANN MONSON [address] [place], [address], [place] - [facility] 08/25/2022 20:25:07
--- OUTSIDE RECORDS SUMMARY | 2025-06-08 01:01 | XMS_ITS | Continuity of Care Document ---
Author Organization [place] - [facility], [facility] Address [address] [place] [address] Care Team Providers Care Event Av Operator Name Role Phone FELIPE OWENS Primary Care [...] Recorded Time Impacted cerumen of bilateral ears 65363494183 84023 Active 2023 Impacted cerumen, bilateral ; Note: Date Diagnosed : 08/14/2023 3:14 PM (H61.23) Donald Maldonado, DO [address] [facility],[address], [address] , [facility] 12:30:45 Impacted cerumen in left ear 86999485267 05649 Active 2023 Impacted cerumen, left ear; Note: Date Diagnosed : 09/22/2023 10:09 AM (H61.22) Not Available [facility] 03:05:55 Problem Notes None recorded. Procedures Surgical History Date Name Laterality Status Provider Name and Address Organization Details Recorded Time Cerumen removal with microscope completed Donald Maldonado, DO [address] [facility],[place] [address], [place], [address], [facility] 04/12/2025 14:37:08 Imaging Results None recorded. Procedure Notes None recorded. Medical Equipment None Reported. Allergies Allergen ID Allergen Name Allergen Category Reaction Reaction Severity Criticality Documentation Date Start Date Code Code System Note Provider Name and Address Organization Details Recorded Time 662439 almond oil food,medi cation other Not available Not available 02/19/2024 46985 38 RxNorm React ion: Unkno wn; Not Available [facility] 4 00:38:05 898394 lisinopri l medicatio n other Not available Not available 02/19/2024 90248 RxNorm React ion: Unkno wn; Not Available [facility] 4 00:38:05 Medications Name Sig Start Date Stop Date Status Note LastModified by Organization Details LastModified Time amoxicill in 500 mg capsule active Not Available Not Available Not Available amiodaron e 200 mg tablet active Not Available Not Available Not Available Debrox 6.5 % ear drops Instill 4 drop into left ear twice a day 2023 active Medicati on ID: 112750 D uration Value: 30 Brand Name: Ginger [...] Updated DateTime 04/12/2025 172.72 cm 27.8 kg/m2 74273.4 g [facility] 04/12/2025 14:07:29 Social History None recorded. Functional Status None recorded. Mental Status None recorded. Family History Nothing Reported. Medical History No medical history recorded. Past Encounters Encounter ID Performer Location Encounter Start Date Encounter Closed Date Diagnosis/Indication Diagnosis SNOMED-CT Code Diagnosis ICD10 Code Diagnosis IMO Codes Diagnosis Note [id number] Donald Maldonado DO [facility] [address] [address] 04/12/2025 13:55:16 04/12/2025 14:39:44 Impacted cerumen of bilateral ears [id number] 925457 H61.23 697665 Health Concerns Section Related Observation LastModified by Organization Detai ls LastModified Time None Recorded Concern Status LastModified by Organization Details LastModified Time None Recorded Payers Encounter Date Sequence Insurance Name Policy Number Policy Glez Covered Member ID Glez Member ID Guarantor Name 04/12/2025 1 [place] [employer] Brodie Cancino [id number] Brodie Cancino 04/12/2025 2 [place] [facility] Brodie Cancino [id number] Germandelmis Cancino Notes Date Note Type Note Provider Name and Address Organization Details Recorded Time 04/12/2025 text/html ROS as noted in the HPI The patient presents today for cerumen removal. They Endorse aural fullness. They Endorse otaliga AU. They Endorse hearing loss AU. They deny symptoms of vertigo, autophony, and tinnitus. Prior Audiogram: None Donald Maldonado, DO [address] [facility],[place] [address], [place], [address], [facility] - [facility] 04/12/2025 14:37:49
--- OUTSIDE RECORDS SUMMARY | 2025-06-08 01:01 | XMS_ITS | Encounter Summary ---
Author Organization [facility] Address [address] [facility] [address] [place] [address] Phone Care Team Providers Care Emergency Medical Technician Name Role Phone Daksha Ramirez MD Primary Care Provider Encounter Details Date Type Department Care Team ([facility] st Contact Info) Description 09/21/2017 Ancillary Orders [facility] [address] [place] [address] Nurys Garcia MD [address] [address] Social History Tobacco Use Types Packs/Day Years [...] on filedocumented in this encounter Care Teams Emergency Medical Technician Relationship Specialty Start Date End Date Daksha Ramirez MD [address] [place] [address] [address] [place] [address] PCP - General Internal Medicine 10/28/17 documented as of this encounter Additional Source Comments The information contained in this document represents components of the legal health record. It is not the complete legal health record.[facility]
--- OUTSIDE RECORDS SUMMARY | 2025-06-08 01:01 | XMS_ITS | Encounter Summary ---
Author Organization [facility] Address [address] [facility] [address] [place] [address] Phone Care Team Providers Care Garden Implement Mechanic Name Role Phone Daksha Ramirez MD Primary Care Provider Encounter Details Date Type Department Care Team (Late st Contact Info) Description 09/21/2017 Ancillary Orders [facility] [address] [place] [address] Nurys Garcia MD [address] [address] Frequent PVCs Social History Tobacco Use Types [...] PVCs documented in this encounter Care Teams Garden Implement Mechanic Relationship Specialty Start Date End Date Daksha Ramirez MD [address] [place], [place] [phone] PCP - General Internal Medicine 10/28/17 documented as of this encounter Additional Source Comments The information contained in this document represents components of the legal health record. It is not the complete legal health record.[facility]
== END 2025-06-07 13:06 | disposition home or self-care (01) ==
LOC: HO.HMGAL 13:06
PROVIDERS: PCP Internal Medicine; Visit Provider Registered Nurse Emergency
DX: J30.89 Other allergic rhinitis (principal)
CPT/HCPCS: 95117; 95165